=== PATIENT | female | born 1985 | race Caucasian/White ===

== ENCOUNTER 2017-04-08 17:42 | Emergency (ER) | payer OTHER, BC ==
[2017-04-08] MEDS ORDERED: Lidocaine 1% 20 ML MDV INJECT ONE (17:44)
[2017-04-08] MEDS ORDERED: Lidocaine 1% 20 ML MDV ONE (17:45)
--- NOTE | 2017-04-08 17:51 | EDM.PDOC ---
ED HPI GENERAL MEDICAL PROBLEM - General Chief Complaint: Laceration Stated Complaint: UNKNOWN Time Seen by Provider: 04/08/17 17:50 Source of Information: Reports: Patient - History of Present Illness INITIAL COMMENTS - FREE TEXT/NARRATIVE: HISTORY AND PHYSICAL: History of present illness: []Patient was at work today she fell off of a chair landing onto a carpeted floor however she sustained a 4-5 inch horizontal linear laceration evolving the right knee which is gaping to the patella limb is normal as is neurovascularly intact no or obvious foreign body Lesion is bled well no fever nausea vomiting chills sweats no chest pain shortness breath headache dizziness or palpitation no bowel or urine symptoms no head injury or loss of consciousness Review of systems: As per history of present illness and below otherwise all systems reviewed and negative. Past medical history: As per history of present illness and as reviewed below otherwise noncontributory. Surgical history: As per history of present illness and as reviewed below otherwise noncontributory. Social history: No reported history of drug or alcohol abuse. Family history: As per history of present illness and as reviewed below otherwise noncontributory. Physical exam: HEENT: Atraumatic, normocephalic, pupils reactive, negative for conjunctival pallor or scleral icterus, mucous membranes moist, throat clear, neck supple, nontender, trachea midline. Lungs: Clear to auscultation, breath sounds equal bilaterally, chest nontender. Heart: S1S2, regular, negative for clicks, rubs, or JVD. Abdomen: Soft, nondistended, nontender. Negative for masses or hepatosplenomegaly. Negative for costovertebral tenderness. Pelvis: Stable nontender. Genitourinary: Deferred. Rectal: Deferred. Extremities: Atraumatic, negative for cords or calf pain. Neurovascular unremarkable. Neuro: Awake, alert, oriented. Cranial nerves II through XII unremarkable. Cerebellum unremarkable. Motor and sensory unremarkable throughout. Exam nonfocal. Diagnostics: []X-ray 2 views right knee Therapeutics: []Cleansed and explored Lidocaine Jason #17 Standard wound care instructions Bacitracin Telephone Gauze wrap/Jean Pierre wrap dressing Bactrim double strength by mouth twice a day #20 no refill Impression: []5 inch linear laceration right knee Definitive disposition and diagnosis as appropriate pending reevaluation and review of above. right knee Pain Score (Numeric/FACES): 7 - Related Data Allergies Allergy/AdvReac Type Severity Reaction Status Date / Time amoxicillin Allergy Diarrhea Verified 04/08/17 17:49 ED ROS GENERAL - Review of Systems Review Of Systems: ROS reveals no pertinent complaints other than HPI. ED EXAM, SKIN/RASH Exam: See Below Course - Vital Signs Last Recorded V/S: Last Vital Signs Temp 36.8 C 04/08/17 17:49 Pulse 90 04/08/17 17:49 Resp 18 04/08/17 17:49 BP 157/85 H 04/08/17 17:49 Pulse Ox 100 04/08/17 17:49 - Orders/Labs/Meds Orders: Active Orders 24 hr Category Date Time Status Knee 1V or 2V Rt [CR] Stat Exams 04/08/17 17:47 Taken Meds: Medications Discontinued Medications Generic Name Dose Route Start Last Admin Trade Name Freq PRN Reason Stop Dose Admin Lidocaine HCl 20 ml 04/08/17 17:44 04/08/17 18:16 Xylocaine 1% INJECT 04/08/17 17:45 20 ml ONETIME ONE Administration Lidocaine HCl Confirm 04/08/17 17:45 04/08/17 18:16 Xylocaine 1% Administered 04/08/17 17:46 Not Given Dose 20 ml .ROUTE .STK-MED ONE Departure - Departure Time of Disposition: 18:30 Disposition: Home, Self-Care 01 Preliminary Cause of *Q: Sepsis & Multi System Organ Failure Clinical Impression: Laceration - Discharge Information Forms: ED Department Discharge Additional Instructions: Medication as prescribed Return if symptoms persist or worsen Return if fever nausea vomiting chills sweats despite antibiotics redness warmth or pus drainage. Also properly return to ER Follow-up with primary care or occupational health Staple removal in 14 days Keep wound clean and dry for 48 hours Change dressing if it soaks through or becomes soiled as needed and daily [facility] [address] [place] [phone] The following information is given to patients seen in the emergency department who are being discharged to home. This information is to outline your options for follow-up care. We provide all patients seen in our emergency department with a follow-up referral. The need for follow-up, as well as the timing and circumstances, are variable depending upon the specifics of your emergency department visit. If you don't have a primary care physician on staff, we will provide you with a referral. We always advise you to contact your personal physician following an emergency department visit to inform them of the circumstance of the visit and for follow-up with them and/or the need for any referrals to a consulting specialist. The emergency department will also refer you to a specialist when appropriate. This referral assures that you have the opportunity for follow-up care with a specialist. All of these measure are taken in an effort to provide you with optimal care, which includes your follow-up. Under all circumstances we always encourage you to contact your private physician who remains a resource for coordinating your care. When calling for follow-up care, please make the office aware that this follow-up is from your recent emergency room visit. If for any reason you are refused follow-up, please contact the [facility] emergency department at and asked to speak to the emergency department charge nurse. - My Orders Last 24 Hours: My Active Orders 04/08/17 17:47 Knee 1V or 2V Rt [CR] Stat - Assessment/Plan Last 24 Hours: My Active Orders 04/08/17 17:47 Knee 1V or 2V Rt [CR] Stat
[2017-04-08] MEDS ORDERED: Bacitracin Oint 1 GM U/D Packet TOP ONE (18:42)
[2017-04-08 19:15] VITALS: BP 137/89
--- NOTE | 2017-04-09 09:37 | CR ---
EXAM DATE: 04/08/17 PATIENT'S AGE: 32 Patient: FAINA BOND Facility: [place], [place] Site . Site : 1985 Study: XRay Knee [id number] 6:16:43 PM Ordering Physician: Doctor Bueno Final Report: INDICATION: Injury. Status post fall, laceration. TECHNIQUE: Right knee, two views. COMPARISON: None FINDINGS: Bones: Alignment is normal. No acute fractures or aggressive osseous lesions seen. Joint spaces: No significant joint effusion is seen. The joint spaces of the medial, lateral, and patellofemoral compartments are unremarkable. Soft tissues: No radiopaque soft tissue foreign body. Likely soft tissue injury , superficial to midportion of the patella on lateral view. Distal quadriceps tendon and patellar tendon grossly unremarkable. IMPRESSION: 1. Right knee, no acute fracture or joint effusion. Anterior right knee soft tissue defect, superficial to the patella. Dictated by Stevie Mackey MD @ 04/08/2017 6:49:23 PM Dictated by: Stevie Mackey MD @ 04/08/2017 18:49:30 (Electronic Signature) Report Signed by Proxy. [facility]
== END 2017-04-08 19:12 | disposition home or self-care (01) ==
LOC: MW.ED 17:42
DX: S81.011A Laceration without foreign body, right knee, initial encounter (principal); Z88.0 Allergy status to penicillin; W07.XXXA Fall from chair, initial encounter
CPT/HCPCS: 12005; 73560-26-RT; 73560-RT; 99283

== ENCOUNTER 2019-10-17 08:50 | Observation (INO) | payer BC, OTHER ==
--- NOTE | 2019-10-17 09:56 | EDM.PDOC ---
ED HPI GENERAL MEDICAL PROBLEM - General Chief Complaint: Upper Extremity Injury/Pain Stated Complaint: RT SHOULDER INJURY, PROBLEMS WITH LEFT HAND Time Seen by Provider: 10/17/19 08:51 Source of Information: Reports: Patient History Limitations: Reports: No Limitations - History of Present Illness INITIAL COMMENTS - FREE TEXT/NARRATIVE: HISTORY OF PRESENT ILLNESS: Patient is a 34 year old female who states that since 6pm last night she has had "heaviness" and contracture of the ulnar aspect of her right hand , felt heaviness to arm earlier. Is concerned as she is unable to fully extend ulnar aspect of hand. She has numbness to her right face, but describes it as mostly as just lateral to her mouth. Had involvement to v1 and part of v2 area earlier , but no longer. States this has been ongoing intermittently "for a long time" approximately 1-2 times/month. Pt states she slept in an unusual position on the cough which may have caused symptoms. Denies any wrist drop. Denies any recent trauma/falls. No slurred speech or blurred vision. No neck pain but has pain to intrascapular region. She does receive chiropractic work, but has not had any for a few weeks. No arm paresthesias. Has history of sciatica right leg which is unchanged. No cp, dyspnea or abdominal pain. No incontinence or urinary symptoms. Pt has a history of fusion of right shoulder and elbow REVIEW OF SYSTEMS: Other than the symptoms associated with the present events, the following is reported with regard to recent health: General: (-) fever. HENT: (-) congestion. Respiratory: (-) cough. Cardiovascular: (-) chest pain. GI: (-) abdominal pain. : (-) urinary complaints. Musculoskeletal: (-) other aches or pains. Endocrine: (-) generalized weakness. Neurological: (-) localized weakness. Skin: (-) rash PAST MEDICAL HISTORY: reviewed as per nursing notes SOCIAL HISTORY: reviewed as per nursing notes, MEDICATIONS: Per nurse's note ALLERGIES: Per nurse's note, reviewed by me PHYSICAL EXAMINATION: GENERALIZED APPEARANCE: well developed, well nourished in no distress VITAL SIGNS: Per nurse's note, reviewed by me SKIN: Warm, dry; (-) cyanosis; (-) rash. HEAD: (-) scalp swelling, (-) tenderness. EYES: (-) conjunctival pallor, (-) scleral icterus. ENMT: (-) stridor; mucous membranes moist. NECK: (-) tenderness, (-) stiffness, (-) bruit. FROM. no midline tenderness/ step off or deformity BACK: trapezius and infrascapular tenderness. no direct vertebral tenderness. no step off or deformity. right SI tenderness. CHEST AND RESPIRATORY: (-) rales, (-) rhonchi, (-) wheezes; breath sounds equal bilaterally. HEART AND CARDIOVASCULAR: (-) irregularity; (-) murmur, (-) gallop. ABDOMEN AND GI: Soft; (-) tenderness, (-) guarding, (-) rebound, (-) palpable masses, EXTREMITIES: limited ROM right shoulder and elbow (baseline secondary to fusion), TTP left olecranon which pt states is chronic. Contracture of ulnar aspect right hand. unable to actively extend 4th, 5th digits. 2+ radial pulses. cap refill <2 sec. sensation of UE intact and equal bilaterally. decreased sensation to plantar aspect of right foot which pt states has been baseline x years NEURO AND PSYCH: Alert. Cranial nerves grossly intact; strength symmetric. gait steady. EOMI. no gaze impairment. oriented x 3. visual davila intact. sensation intact and equal bilaterally. no dysarthria or aphasia. 5/5+ Strength UE and LE. 3+ DTR. DIAGNOSTICS: CT head/neck CBC, CMP, INR EMERGENCY DEPARTMENT COURSE AND TREATMENT: Patient's condition remained stable during Emergency Department evaluation. Pt remained stable during ED course, she had numbness to light touch just to right of mouth, in non-neurologic distribution. Strength and sensation to UE equal bilaterally although ROM difficult due to prior fusions. Symptoms more than 15 hours old and no indication for code stroke at this time. Symptoms likely due to ulner nerve vs Dupuytren's contracture. However, with facial symptoms, CT ordered and resulted as above. Will require MRI. Case d/w Dr. Villafana who kindl agrees to admit PLAN AND FOLLOW-UP: Admit Right Knee Pain Score (Numeric/FACES): 2 - Related Data Allergies Allergy/AdvReac Type Severity Reaction Status Date / Time amoxicillin Allergy Diarrhea Verified 10/17/19 14:26 Home Meds: Home Meds Acetaminophen [Tylenol Extra Strength] 500 mg PO ASDIRECTED PRN 10/17/19 [ History] Aspirin [Adult Low Dose Aspirin EC] 81 mg PO DAILY 10/17/19 [History] Cetirizine HCl [Allergy Relief] 10 mg PO BEDTIME 10/17/19 [History] Metoprolol Tartrate 25 mg PO BID 10/17/19 [History] NIFEdipine [Nifedipine ER] 60 mg PO BEDTIME 10/17/19 [History] Potassium Chloride 10 meq PO BEDTIME 10/17/19 [History] azaTHIOprine [Azathioprine] 10/17/19 [History] predniSONE [Prednisone] 2.5 mg PO BID 10/17/19 [History] Past Medical History Musculoskeletal History: Reports: Other (See Below) Other Musculoskeletal History: lupus - Infectious Disease History Infectious Disease History: Reports: Chicken Pox, Measles, Mumps - Past Surgical History GI Surgical History: Reports: Other (See Below) Other GI Surgeries/Procedures: kidney biopsy Neurological Surgical History: Reports: Other (See Below) Other Neurological Surgeries/Procedures: Elbow surgery Social & Family History - Family History Family Medical History: Noncontributory - Tobacco Use Smoking Status *Q: Never Smoker - Caffeine Use Caffeine Use: Reports: Coffee - Recreational Drug Use Recreational Drug Use: No Review of Systems - Review of Systems Review Of Systems: See Below (see dictation) ED EXAM, GENERAL - Physical Exam Exam: See Below (see dictation) Course - Vital Signs Last Recorded V/S: Last Vital Signs Temp 97.7 F 10/17/19 12:02 Pulse 81 10/17/19 12:02 Resp 17 10/17/19 09:03 BP 163/106 H 10/17/19 12:02 Pulse Ox 99 10/17/19 12:02 - Orders/Labs/Meds Orders: Active Orders 24 hr Category Date Time Status Admission Status [Patient Status] [ADT] Stat ADT 10/17/19 12:13 Active DME for Discharge [COMM] Stat Oth 10/17/19 12:33 Ordered Saline Lock Insert [OM.PC] Stat Oth 10/17/19 09:39 Ordered Labs: Laboratory Tests 10/17/19 10/17/19 10/17/19 Range/Units 09:50 09:50 09:50 WBC 5.17 (4.0-11.0) K/uL RBC 3.52 L (4.30-5.90) M/uL Hgb 12.3 (12.0-16.0) g/dL Hct 34.8 L (36.0-46.0) % MCV 98.9 H (80.0-98.0) fL MCH 34.9 H (27.0-32.0) pg MCHC 35.3 (31.0-37.0) g/dL RDW Std Deviation 55.8 (28.0-62.0) fl RDW Coeff of Rocky 16 H (11.0-15.0) % Plt Count 77 L (150-400) K/uL MPV 12.10 H (7.40-12.00) fL Neut % (Auto) 87.8 H (48.0-80.0) % Lymph % (Auto) 5.2 L (16.0-40.0) % [place] % (Auto) 5.8 (0.0-15.0) % Eos % (Auto) 1.0 (0.0-7.0) % Baso % (Auto) 0.2 (0.0-1.5) % Neut # (Auto) 4.5 (1.4-5.7) K/uL Lymph # (Auto) 0.3 L (0.6-2.4) K/uL [place] # (Auto) 0.3 (0.0-0.8) K/uL Eos # (Auto) 0.1 (0.0-0.7) K/uL Baso # (Auto) 0.0 (0.0-0.1) K/uL Nucleated RBC % 0.0 /100WBC Nucleated RBCs # 0 K/uL INR 1.04 Sodium 144 (136-145) mmol/L Potassium 3.9 (3.5-5.1) mmol/L Chloride 109 H (98-107) mmol/L Carbon Dioxide 22.9 (21.0-32.0) mmol/L BUN 22 H (7.0-18.0) mg/dL Creatinine 1.5 H (0.6-1.0) mg/dL Est Cr Clr Drug Dosing 37.24 mL/min Estimated GFR (MDRD) 39.3 ml/min Glucose 85 (74-106) mg/dL Calcium 8.3 L (8.5-10.1) mg/dL Meds: Medications Discontinued Medications Generic Name Dose Route Start Last Admin Trade Name Elio PRN Reason Stop Dose Admin Influenza Virus Vaccine 1 each 10/17/19 13:57 10/17/19 14:25 Pharmacy To Dose - Influenza Vaccine IM 10/17/19 13:58 Not Given ONETIME ONE Influenza Virus Vaccine 60 mcg 10/17/19 14:15 Fluzone Quad Syringe IM 10/17/19 14:16 .ONCE ONE Departure - Departure Time of Disposition: 12:43 Disposition: Refer to Observation Clinical Impression: Facial numbness, Contracture of hand, White matter low density on CT of brain - Discharge Information Sepsis Event Note - Evaluation Sepsis Screening Result: No Definite Risk - Focused Exam Vital Signs: Vital Signs Temp Pulse Resp BP Pulse Ox 10/17/19 12:02 97.7 F 81 163/106 H 99 10/17/19 09:03 97.8 F 91 17 146/92 H 94 L Date Exam was Performed: 10/17/19 Time Exam was Performed: 15:40 - My Orders Last 24 Hours: My Active Orders 10/17/19 09:39 Saline Lock Insert [OM.PC] Stat 10/17/19 12:13 Admission Status [Patient Status] [ADT] Stat 10/17/19 12:33 DME for Discharge [COMM] Stat - Assessment/Plan Last 24 Hours: My Active Orders 10/17/19 09:39 Saline Lock Insert [OM.PC] Stat 10/17/19 12:13 Admission Status [Patient Status] [ADT] Stat 10/17/19 12:33 DME for Discharge [COMM] Stat
[2019-10-17 10:14] LABS: CARBON DIOXIDE,CO2 22.9 mmol/L (21.0-32.0); POTASSIUM,K 3.9 mmol/L (3.5-5.1)
--- NOTE | 2019-10-17 11:35 | CT ---
Head CT Technique: Multiple axial sections through the brain were obtained. Intravenous contrast was not utilized. Comparison: No prior intracranial imaging is available. Findings: Low density is noted within the left posterior cerebellar hemisphere and left posterior parietal region. Additional low density is noted within the posterior right parietal region and within the right parietal convexity. Findings mostly appear to be fairly well-defined and most likely old. Ventricles along with basal cisterns and sulci over the convexities are mildly prominent. No other abnormal parenchymal densities are seen. No evidence of intracranial hemorrhage. No midline shift or mass-effect is seen. Bone window settings were reviewed. Visualized mastoid sinuses and paranasal sinuses show nothing acute. No acute calvarial abnormality is appreciated. Impression: 1. Multiple low density areas. Findings raise the possibility of multiple previous infarcts or areas of encephalomalacia from prior trauma. 2. Mild generalized atrophy. 3. Given the patient's age, recommend MRI brain (without and with contrast) to confirm that none of these areas of decreased density represent other etiology. 4. No evidence of intracranial hemorrhage. No mass-effect is seen at this time. Diagnostic code #9 This report was dictated in [place] Standard Time
--- NOTE | 2019-10-17 11:35 | CT ---
CT neck Technique: Multiple axial sections were obtained from above the external auditory canals inferiorly through the lung apices. Intravenous contrast not utilized. Lack of contrast slightly diminishes details of this exam. Findings: Minimal density is noted within the inferior maxillary sinuses which most likely represents a retention cysts. Finding on the right side measures 1.1 cm and finding on the left side measures 6 mm. Other visualized paranasal sinuses are clear. Mastoid sinuses are clear. Parotid salivary glands appear within normal limits. Submandibular salivary glands appear within normal limits. No discrete adenopathy is seen. Parapharyngeal soft tissues are symmetric between right and left sides. No prevertebral soft tissue swelling is seen. Epiglottis appears to be normal. Bone window settings were reviewed which appear within normal limits for the patient's age. Impression: 1. Small findings within both inferior maxillary sinus is most likely representing minimal retention cyst. 2. Nothing acute is appreciated on noncontrast CT study of the neck. Diagnostic code #2 This report was dictated in [place] Standard Time
[2019-10-17] MEDS ORDERED: FLU Vacc QS2019-20(6MOS+)/PF 60 MCG/0.5 ML SYRINGE IM ONE (14:15)
[2019-10-17] MEDS ORDERED: Aspirin 81 MG Tab.Chew PO ONE (17:53)
--- NOTE | 2019-10-17 18:03 | PCM.HP.2 ---
H&P History of Present Illness - General Date of Service: 10/17/19 Admit Problem/Dx: Admission Diagnosis/Problem Admission Diagnosis/Problem Neurological symptoms - History of Present Illness Initial Comments - Free Text/Narative: 34 yo female with pmh of hypertension, lupus with renal, joint and skin involvement who presented with right arm weakness. Patient stated that while watching TV last night she developed sudden right arm weakness. This morning it has improved but she still is not able to full extend the fingers of her hand. In the ED she had a CT scan of the head which reported multiple low density areas. Right Knee Pain Score (Numeric/FACES): 2 - Related Data Allergies/Adverse Reactions: Allergies Allergy/AdvReac Type Severity Reaction Status Date / Time amoxicillin Allergy Diarrhea Verified 10/17/19 14:26 Home Medications: Home Meds Acetaminophen [Tylenol Extra Strength] 500 mg PO ASDIRECTED PRN 10/17/19 [ History] Aspirin [Adult Low Dose Aspirin EC] 81 mg PO DAILY 10/17/19 [History] Cetirizine HCl [Allergy Relief] 10 mg PO BEDTIME 10/17/19 [History] Metoprolol Tartrate 25 mg PO BID 10/17/19 [History] NIFEdipine [Nifedipine ER] 60 mg PO BEDTIME 10/17/19 [History] Potassium Chloride 10 meq PO BEDTIME 10/17/19 [History] azaTHIOprine [Azathioprine] 50 mg PO BID 10/17/19 [History] predniSONE [Prednisone] 2.5 mg PO BID 10/17/19 [History] atorvaSTATin [Lipitor] 40 mg PO BEDTIME #30 tab 10/18/19 [Rx] Past Medical History Cardiovascular History: Reports: Hypertension Other Genitourinary History: pt states microscopic blood clot in the kidneys Musculoskeletal History: Reports: Other (See Below) Other Musculoskeletal History: lupus - Infectious Disease History Infectious Disease History: Reports: Chicken Pox, Measles, Mumps - Past Surgical History GI Surgical History: Reports: Other (See Below) Other GI Surgeries/Procedures: kidney biopsy Neurological Surgical History: Reports: Other (See Below) Other Neurological Surgeries/Procedures: Elbow surgery Social & Family History - Family History Family Medical History: Noncontributory - Tobacco Use Smoking Status *Q: Never Smoker - Caffeine Use Caffeine Use: Reports: Coffee - Recreational Drug Use Recreational Drug Use: No H&P Review of Systems - Review of Systems: Review Of Systems: Comprehensive ROS is negative, except as noted in HPI. Exam - Exam Exam: See Below - Vital Signs Vital Signs: Last Vital Signs Temp 36.3 C 10/17/19 16:00 Pulse 86 10/17/19 16:00 Resp 20 10/17/19 16:00 BP 180/104 H 10/17/19 16:00 Pulse Ox 97 10/17/19 16:00 Weight: 58.3 kg - Exam General: Alert, Oriented HEENT: Conjunctiva Clear Lungs: Clear to Auscultation, Normal Respiratory Effort Cardiovascular: Regular Rate, Regular Rhythm GI/Abdominal Exam: Normal Bowel Sounds, Soft, Non-Tender Extremities: Non-Tender, No Pedal Edema, Other (mild lace red rash on forarms) Neurological: Cranial Nerves Intact, Reflexes Equal Bilateral, Strength Equal Bilateral, Normal Speech, Normal Tone, Sensation Intact (right fingers able to extend about 160 degrees), Other - Patient Data Lab Results Last 24 hrs: Laboratory Results - last 24 hr 10/17/19 10/17/19 10/17/19 Range/Units 09:50 09:50 09:50 WBC 5.17 (4.0-11.0) K/uL RBC 3.52 L (4.30-5.90) M/uL Hgb 12.3 (12.0-16.0) g/dL Hct 34.8 L (36.0-46.0) % MCV 98.9 H (80.0-98.0) fL MCH 34.9 H (27.0-32.0) pg MCHC 35.3 (31.0-37.0) g/dL RDW Std Deviation 55.8 (28.0-62.0) fl RDW Coeff of [place] 16 H (11.0-15.0) % Plt Count 77 L (150-400) K/uL MPV 12.10 H (7.40-12.00) fL Neut % (Auto) 87.8 H (48.0-80.0) % Lymph % (Auto) 5.2 L (16.0-40.0) % [place] % (Auto) 5.8 (0.0-15.0) % Eos % (Auto) 1.0 (0.0-7.0) % Baso % (Auto) 0.2 (0.0-1.5) % Neut # (Auto) 4.5 (1.4-5.7) K/uL Lymph # (Auto) 0.3 L (0.6-2.4) K/uL [place] # (Auto) 0.3 (0.0-0.8) K/uL Eos # (Auto) 0.1 (0.0-0.7) K/uL Baso # (Auto) 0.0 (0.0-0.1) K/uL Nucleated RBC % 0.0 /100WBC Nucleated RBCs # 0 K/uL INR 1.04 Sodium 144 (136-145) mmol/L Potassium 3.9 (3.5-5.1) mmol/L Chloride 109 H (98-107) mmol/L Carbon Dioxide 22.9 (21.0-32.0) mmol/L BUN 22 H (7.0-18.0) mg/dL Creatinine 1.5 H (0.6-1.0) mg/dL Est Cr Clr Drug Dosing 37.24 mL/min Estimated GFR (MDRD) 39.3 ml/min Glucose 85 (74-106) mg/dL Calcium 8.3 L (8.5-10.1) mg/dL Result Diagrams: 10/18/19 05:38 10/18/19 05:38 Sepsis Event Note - Evaluation Sepsis Screening Result: No Definite Risk - Focused Exam Vital Signs: Vital Signs Temp Pulse Resp BP Pulse Ox 10/17/19 16:00 36.3 C 86 20 180/104 H 97 10/17/19 12:02 36.5 C 81 163/106 H 99 10/17/19 09:03 36.6 C 91 17 146/92 H 94 L Date Exam was Performed: 10/20/19 Time Exam was Performed: 15:31 Problem List Initiated/Reviewed/Updated: Yes Orders Last 24hrs: Active Orders 24 hr Category Date Time Status Admission Status [Patient Status] [ADT] Stat ADT 10/17/19 12:13 Active Influenza Vaccine Charge [RC] .DISCHARGE Care 10/17/19 13:57 Active Nursing Bedside Swallow Screen [RC] ASDIRECTED Care 10/17/19 17:00 Active Regular Diet [DIET] Diet 10/17/19 Breakfast Active Ang Head wo Cont [MR] Routine Exams 10/17/19 17:52 Ordered Ang Neck wo Cont [MR] Routine Exams 10/17/19 17:52 Ordered Brain w wo Cont [MR] Routine Exams 10/17/19 17:52 Ordered Echo 2D wo Cont [US] Routine Exams 10/17/19 17:56 Ordered azaTHIOprine [Imuran] Med 10/17/19 18:00 Unverified DOSE UNIT RTE FREQ predniSONE [Prednisone] Med 10/17/19 21:00 Ordered 2.5 mg PO BID DME for Discharge [COMM] Stat Oth 10/17/19 12:33 Ordered Saline Lock Insert [OM.PC] Stat Oth 10/17/19 09:39 Ordered Medication Orders Non-Formulary Medication (Prednisone [Prednisone]) 2.5 mg PO BID JJ Assessment/Plan Comment:: 34 yo female admitted for stroke like symptoms with arm and hand weakness. We will continue work up with MRI/MRA of head neck. We will allow for permissive hypertension today due to concerns of CVA.
[2019-10-17] MEDS: predniSONE 5 MG Tab PO SCH (20:05)
[2019-10-18 06:33] LABS: POTASSIUM,K 4.3 mmol/L (3.5-5.1)
[2019-10-18] MEDS ORDERED: Gadobenate Dimeglumine 529 MG/ML 20 ML SDV IVPUSH STA (07:27)
[2019-10-18] MEDS ORDERED: LORazepam 2 MG/ML SDV IVPUSH ONE (07:42)
[2019-10-18 08:40] LABS: HEMOGLOBIN A1C 4.4 % (4.5-6.2)
[2019-10-18] MEDS: predniSONE 5 MG Tab PO SCH (09:27)
--- NOTE | 2019-10-18 10:28 | MR ---
MRI angiogram of brain Technique: [id number] MR angiogram study was obtained centered to the [place]. Multiple MIP images were obtained in multiple projections. Comparison: No prior intracranial angiogram study is available. Findings: Left vertebral artery is smaller than the right vertebral artery compatible with dominant right vertebral artery. Distal internal carotid arteries appear patent within the carotid siphon. There is normal flow into the posterior cerebral arteries, middle cerebral arteries and anterior cerebral arteries. Posterior cerebral artery is mostly supplied by the anterior circulation with a intact posterior communicating artery. The MIP images shows small size of the right A1 segment which is believed to be artifact as this is not correlated on the source images. No discrete aneurysm is appreciated. No focal occlusion or stenosis is seen. Impression: 1. Dominant right vertebral artery. 2. Left posterior cerebral artery mostly supplied by patent left posterior communicating artery from the anterior circulation. 3. Narrowing on the MIPS images within the right A1 segment believed to be artifact as this is not correlated on the source images. 4. No additional abnormality is appreciated. Diagnostic code #2 This report was dictated in [place] Standard Time
--- NOTE | 2019-10-18 10:28 | MR ---
MR angiogram of neck Noncontrast MR study of the neck was obtained. Study is suboptimal without IV contrast. Findings: There is irregularity within the distal right internal carotid artery. This is an area that usually is caused by artifact. Right vertebral artery is not seen most likely related to flow related process. No additional abnormality is appreciated on this limited study. Impression: 1. Suboptimal study without IV contrast. Findings which are believed to be incidental as noted above. 2. For more complete imaging of the neck vessels, contrast enhanced MR angiogram should be considered. Diagnostic code #3 This report was dictated in [place] Standard Time
--- NOTE | 2019-10-18 10:28 | MR ---
MRI brain (without and with contrast) Technique: T1 coronal and sagittal; T1, T2, FLAIR and diffusion axial; post contrast T1 fat-suppressed axial, coronal and sagittal images were obtained of the brain. Comparison: Previous head CT exam of 10/17/19. Findings: Ventricles along with basal cisterns and sulci over the convexities are mildly prominent. Multiple areas of increased signal seen on the FLAIR sequence within the cortical and subcortical regions on both sides of the supratentorial brain. Mild areas of increased signal are seen within the periventricular white matter. Increased signal as well as an area of focal atrophy is seen within the left cerebellar hemisphere. More confluent areas of increased signal are seen within the posterior parietal regions on both sides. Small diffusion abnormality is seen within the left parietal convexity. No other acute diffusion abnormalities are seen. No abnormal enhancement is identified within the brain parenchyma. No midline shift or mass effect is appreciated. Impression: 1. Areas of increased signal on the FLAIR sequence within the left cerebellar hemisphere as well as within both sides of the supratentorial brain. 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 2. One small area of increased signal shows diffusion abnormality within the left posterior parietal convexity compatible with relatively acute change most likely from lupus encephalopathy. 3. Mild generalized atrophy with no areas of abnormal enhancement being seen. Diagnostic code #3 This report was dictated in [place] Standard Time
[2019-10-18] MEDS ORDERED: Aspirin 81 MG Tab.EC PO SCH (11:59)
[2019-10-18 12:02] VITALS: BP 166/99; PULSE 99
--- NOTE | 2019-10-18 13:53 | PCM.DCSUM1 ---
Discharge Summary - Hospital Course Brief History: 34 yo female with pmh of hypertension, lupus with renal, joint and skin involvement who presented with right arm weakness. Patient stated that while watching TV last night she developed sudden right arm weakness. This morning it has improved but she still is not able to full extend the fingers of her hand. In the ED she had a CT scan of the head which reported multiple low density areas. - Discharge Data Discharge Date: 10/18/19 Discharge Disposition: Home, Self-Care 01 Condition: Good - Referral to Home Health Primary Care Physician: Keyshawn Jiang MD - Patient Summary/Data Consults: Consultations 10/18/19 10:59 Consult to Occupational Therapy [OT Evaluation and Treatment] [CONS] Routine - Discharge Plan *PRESCRIPTION DRUG MONITORING PROGRAM REVIEWED*: Not Applicable *COPY OF PRESCRIPTION DRUG MONITORING REPORT IN PATIENT [place]: Not Applicable Prescriptions/Med Rec: atorvaSTATin [Lipitor] 40 mg PO BEDTIME #30 tab Home Medications: Home Meds Acetaminophen [Tylenol Extra Strength] 500 mg PO ASDIRECTED PRN 10/17/19 [ History] Aspirin [Adult Low Dose Aspirin EC] 81 mg PO DAILY 10/17/19 [History] Cetirizine HCl [Allergy Relief] 10 mg PO BEDTIME 10/17/19 [History] Metoprolol Tartrate 25 mg PO BID 10/17/19 [History] NIFEdipine [Nifedipine ER] 60 mg PO BEDTIME 10/17/19 [History] Potassium Chloride 10 meq PO BEDTIME 10/17/19 [History] azaTHIOprine [Azathioprine] 50 mg PO BID 10/17/19 [History] predniSONE [Prednisone] 2.5 mg PO BID 10/17/19 [History] atorvaSTATin [Lipitor] 40 mg PO BEDTIME #30 tab 10/18/19 [Rx] Oxygen Therapy Mode: Room Air Patient Handouts: Systemic Lupus Erythematosus, Adult, Atorvastatin tablets, Ischemic Stroke Referrals: Keyshawn Jiang MD [Primary Care Provider] - 11/02/19 3:00 pm Breann Oscar MD [Physician] - 10/22/19 2:00 pm Marck Taylor MD [Ordering Only Provider] - 11/11/19 2:00 pm - Discharge Summary/Plan Comment DC Time >30 min.: No Discharge Summary/Plan Comment: Admitting Diagnoses: R arm/hand weakness Discharge Diagnoses: Acute and subacute CVA R arm/hand weakness Other PMH: SLE with joint, renal and skin involvement Thrombocytopenia Osteopenia Hx + antiphospholipid antibody Raynauds phenomenon HTN Sherrell was admitted secondary to sudden onset R arm/hand weakness, head CT in ED revealed multiple low density lesions. She was admitted and permissive HTN allowed, while awaiting MRI/MRA head and neck. 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 I spoke with Dr Oscar, who directly viewed images and felt she likely has have acute and subacute CVAs. She agrees with needing to place patient on anticoagulation, but thrombocytopenia is a limiting factor. She will follow up with patient as outpatient this week. Lipid panel obtained LDL 115, will start on Atorvastatin 40 mg daily. She was counseled on monitoring for muscle weakness. We will also for now continue ASA daily for CVA. Dr Oscar recommended follow up with Hematology regarding thrombocytopenia and the need for starting anticoagulation. I did also speak with Dr Jiang regarding admission and findings. He agrees with anticoagulation, but does feel thrombocytopenia is limiting. I spoke with Sherrell and her , they are wanting to speak with all the specialists prior to making an informed decision. They previously were given this decision and opted for ASA, but at that time she had not had any CVAs. We will arrange follow up appointments with Dr Oscar, neurology, Dr Jiang, Corporate Accounting Manager and PCP as well as Hematology. She will have follow up with outpatient OT to help with R arm weakness after evaluation in the hospital. She will be continued on all home medications, will add Atorvastatin. - General Info Date of Service: 10/18/19 Admission Dx/Problem (Free Text: Admission Diagnosis/Problem Admission Diagnosis/Problem Neurological symptoms Subjective Update: Doing well this morning, R arm weakness continues. able to open hand somewhat. Assistance Specialist strength decreased. No chest pain or SOB. - Patient Data Vitals - Most Recent: Last Vital Signs Temp 98.0 F 10/18/19 12:01 Pulse 99 10/18/19 12:01 Resp 16 10/18/19 12:01 BP 166/99 H 10/18/19 12:01 Pulse Ox 97 10/18/19 12:01 Weight - Most Recent: 58.3 kg I&O - Last 24 hours: Intake & Output 10/17/19 10/18/19 10/18/19 22:59 06:59 14:59 Intake Total 600 Output Total 400 Balance 200 Lab Results - Last 24 hrs: Laboratory Results - last 24 hr 10/18/19 10/18/19 10/18/19 Range/Units 05:38 05:38 05:38 WBC 3.61 L (4.0-11.0) K/uL RBC 3.27 L (4.30-5.90) M/uL Hgb 11.2 L (12.0-16.0) g/dL Hct 32.5 L (36.0-46.0) % MCV 99.4 H (80.0-98.0) fL MCH 34.3 H (27.0-32.0) pg MCHC 34.5 (31.0-37.0) g/dL RDW Std Deviation 55.8 (28.0-62.0) fl RDW Coeff of [place] 15 (11.0-15.0) % Plt Count 73 L (150-400) K/uL MPV 12.90 H (7.40-12.00) fL Neut % (Auto) 87.5 H (48.0-80.0) % Lymph % (Auto) 7.2 L (16.0-40.0) % [place] % (Auto) 3.6 (0.0-15.0) % Eos % (Auto) 1.4 (0.0-7.0) % Baso % (Auto) 0.3 (0.0-1.5) % Neut # (Auto) 3.2 (1.4-5.7) K/uL Lymph # (Auto) 0.3 L (0.6-2.4) K/uL [place] # (Auto) 0.1 (0.0-0.8) K/uL Eos # (Auto) 0.1 (0.0-0.7) K/uL Baso # (Auto) 0.0 (0.0-0.1) K/uL Nucleated RBC % 0.0 /100WBC Nucleated RBCs # 0 K/uL Sodium 144 (136-145) mmol/L Potassium 4.3 (3.5-5.1) mmol/L Chloride 109 H (98-107) mmol/L Carbon Dioxide 25.0 (21.0-32.0) mmol/L BUN 26 H (7.0-18.0) mg/dL Creatinine 1.5 H (0.6-1.0) mg/dL Est Cr Clr Drug Dosing 37.24 mL/min Estimated GFR (MDRD) 39.3 ml/min Glucose 87 (74-106) mg/dL Hemoglobin A1c (4.5-6.2) % Calcium 8.4 L (8.5-10.1) mg/dL Triglycerides 121 (0-200) mg/dL Cholesterol 193 (50-200) mg/dL LDL Cholesterol, Calc 115 (60-180) mg/dL VLDL Cholesterol 24 (5-55) mg/dL HDL Cholesterol 54 (40-60) mg/dL Cholesterol/HDL Ratio 3.6 (3.3-6.0) 10/18/19 Range/Units 05:38 WBC (4.0-11.0) K/uL RBC (4.30-5.90) M/uL Hgb (12.0-16.0) g/dL Hct (36.0-46.0) % MCV (80.0-98.0) fL MCH (27.0-32.0) pg MCHC (31.0-37.0) g/dL RDW Std Deviation (28.0-62.0) fl RDW Coeff of [place] (11.0-15.0) % Plt Count (150-400) K/uL MPV (7.40-12.00) fL Neut % (Auto) (48.0-80.0) % Lymph % (Auto) (16.0-40.0) % [place] % (Auto) (0.0-15.0) % Eos % (Auto) (0.0-7.0) % Baso % (Auto) (0.0-1.5) % Neut # (Auto) (1.4-5.7) K/uL Lymph # (Auto) (0.6-2.4) K/uL [place] # (Auto) (0.0-0.8) K/uL Eos # (Auto) (0.0-0.7) K/uL Baso # (Auto) (0.0-0.1) K/uL Nucleated RBC % /100WBC Nucleated RBCs # K/uL Sodium (136-145) mmol/L Potassium (3.5-5.1) mmol/L Chloride (98-107) mmol/L Carbon Dioxide (21.0-32.0) mmol/L BUN (7.0-18.0) mg/dL Creatinine (0.6-1.0) mg/dL Est Cr Clr Drug Dosing mL/min Estimated GFR (MDRD) ml/min Glucose (74-106) mg/dL Hemoglobin A1c 4.4 L (4.5-6.2) % Calcium (8.5-10.1) mg/dL Triglycerides (0-200) mg/dL Cholesterol (50-200) mg/dL LDL Cholesterol, Calc (60-180) mg/dL VLDL Cholesterol (5-55) mg/dL HDL Cholesterol (40-60) mg/dL Cholesterol/HDL Ratio (3.3-6.0) Med Orders - Current: Current Medications Aspirin (Halfprin) 81 mg PO DAILY [facility] Last Admin: 10/18/19 13:03 Dose: 81 mg Azathioprine 50 Mg (Tab) 0 each PO DAILY [facility] Last Admin: 10/18/19 13:03 Dose: 2 each Prednisone (Prednisone) 2.5 mg PO BID [facility] Last Admin: 10/18/19 09:27 Dose: 2.5 mg Discontinued Medications Aspirin (Aspirin) 324 mg PO ONETIME ONE Stop: 10/17/19 17:54 Last Admin: 10/17/19 19:32 Dose: Not Given Azathioprine (Imuran) 50 mg PO BID [facility] Gadobenate Dimeglumine (Multihance) 20 ml IVPUSH ONETIME STA Stop: 10/18/19 07:28 Last Admin: 10/18/19 08:04 Dose: 8 ml Influenza Virus Vaccine (Pharmacy To Dose - Influenza Vaccine) 1 each IM ONETIME ONE Stop: 10/17/19 13:58 Last Admin: 10/17/19 14:25 Dose: Not Given Influenza Virus Vaccine (Fluzone Quad [id number] Syringe) 60 mcg IM .ONCE ONE Stop: 10/17/19 14:16 Lorazepam (Ativan) 1 mg IVPUSH ONETIME ONE Stop: 10/18/19 07:43 Last Admin: 10/18/19 09:19 Dose: 1 mg - Exam General: Reports: Alert, Oriented Lungs: Reports: Clear to Auscultation, Normal Respiratory Effort Cardiovascular: Reports: Regular Rate, Regular Rhythm GI/Abdominal Exam: Normal Bowel Sounds, Soft, Non-Tender Extremities: Normal Inspection, Normal Range of Motion Neurological: Denies: Strength Equal Bilateral (R hand +3/5) Psy/Mental Status: Reports: Alert, Normal Affect, Normal Mood
--- NOTE | 2019-10-21 15:18 | ECHO ---
EXAM DATE: 10/17/19 PATIENT'S AGE: 34 The echocardiogram report can be seen in this patient's EMR (Electronic Medical Record) in the REPORTS section. The report has also been scanned into PACs. BRYAN
== END 2019-10-18 16:30 | disposition home or self-care (01) ==
LOC: MW.ED 08:50 → MW.MS 12:43
PROVIDERS: ADMIT Internal Medicine; ATTEND Internal Medicine
DX: I63.9 Cerebral infarction, unspecified (principal); R53.1 Weakness; I10 Essential (primary) hypertension; M32.14 Glomerular disease in systemic lupus erythematosus; D47.3 Essential (hemorrhagic) thrombocythemia; M85.80 Other specified disorders of bone density and structure, unspecified site; I73.00 Raynaud's syndrome without gangrene; Z79.82 Long term (current) use of aspirin; Z79.899 Other long term (current) drug therapy; Z88.0 Allergy status to penicillin; Z86.2 Personal history of diseases of the blood and blood-forming organs and certain disorders involving the immune mechanism; Z23 Encounter for immunization; R29.898 Other symptoms and signs involving the musculoskeletal system
CPT/HCPCS: 36415; 70450; 70490; 70544; 70547; 70553; 80048; 80061; 83036; 85025; 85302; 85303; 85306; 85610; 85611; 85613; 85670; 85732; 86146; 86147; 90471; 90686; 93306; 96374; 97165; 99284; A9270; A9577; G0378; J2060; G0008; J7512

== ENCOUNTER 2020-10-17 21:33 | Emergency (ER) | payer OTHER ==
[2020-10-17] MEDS ORDERED: Aspirin 81 MG Tab.Chew PO ONE (21:47)
--- NOTE | 2020-10-17 21:51 | EDM.PDOC ---
ED HPI GENERAL MEDICAL PROBLEM - General Chief Complaint: Chest Pain Stated Complaint: CHEST PAIN Time Seen by Provider: 10/17/20 21:36 Source of Information: Reports: Patient History Limitations: Reports: No Limitations - History of Present Illness INITIAL COMMENTS - FREE TEXT/NARRATIVE: Is a 35-year-old female on warfarin with a history of lupus who presents today for right-sided chest pain. Patient states that about a hour ago she developed this right-sided pain that has not been made better or worse with any event. Patient took some Tylenol without much relief. Patient denies any cough fever chills or injury to the chest. Patient denies any leg swelling. Patient has never had this pain before in her chest in the past. chest area Pain Score (Numeric/FACES): 5 - Related Data Allergies Allergy/AdvReac Type Severity Reaction Status Date / Time amoxicillin Allergy Diarrhea Verified 10/17/20 21:47 Home Meds: Home Meds Metoprolol Tartrate 25 mg PO BID 10/17/19 [History] NIFEdipine [Nifedipine ER] 60 mg PO BEDTIME 10/17/19 [History] azaTHIOprine [Azathioprine] 50 mg PO BID 10/17/19 [History] predniSONE [Prednisone] 2.5 mg PO BID 10/17/19 [History] atorvaSTATin [Lipitor] 40 mg PO BEDTIME #30 tab 10/18/19 [Rx] Cholecalciferol (Vitamin D3) [Vitamin D3] 5,000 unit PO DAILY 10/17/20 [History] Warfarin [Coumadin] 5 mg PO ASDIRECTED 10/17/20 [History] Past Medical History Cardiovascular History: Reports: Hypertension Other Genitourinary History: pt states microscopic blood clot in the kidneys Musculoskeletal History: Reports: Other (See Below) Other Musculoskeletal History: lupus - Infectious Disease History Infectious Disease History: Reports: Chicken Pox, Measles, Mumps - Past Surgical History GI Surgical History: Reports: Other (See Below) Other GI Surgeries/Procedures: kidney biopsy Neurological Surgical History: Reports: Other (See Below) Other Neurological Surgeries/Procedures: Elbow surgery Social & Family History - Family History Family Medical History: No Pertinent Family History - Caffeine Use Caffeine Use: Reports: Coffee ED ROS GENERAL - Review of Systems Review Of Systems: See Below Constitutional: Reports: No Symptoms HEENT: Reports: No Symptoms Respiratory: Reports: No Symptoms Cardiovascular: Reports: Chest Pain Endocrine: Reports: No Symptoms GI/Abdominal: Reports: No Symptoms : Reports: No Symptoms Musculoskeletal: Reports: No Symptoms Skin: Reports: No Symptoms Neurological: Reports: No Symptoms Psychiatric: Reports: No Symptoms Hematologic/Lymphatic: Reports: No Symptoms Immunologic: Reports: No Symptoms ED EXAM, GENERAL - Physical Exam Exam: See Below Exam Limited By: No Limitations General Appearance: Alert, WD/WN, No Apparent Distress Respiratory/Chest: No Respiratory Distress, Lungs Clear, Normal Breath Sounds Cardiovascular: Normal Peripheral Pulses, Regular Rate, Rhythm GI/Abdominal: Normal Bowel Sounds, Soft, Non-Tender Extremities: Normal Inspection Neurological: Alert, Oriented, Normal Cognition, Normal Gait #1 Interpretation EKG Date: 10/17/20 Time: 21:35 Rhythm: NSR Rate (Beats/Min): 93 [place]: Normal ST-T: Normal Course - Vital Signs Last Recorded V/S: Last Vital Signs Temp 99 F 10/17/20 21:35 Pulse 71 10/17/20 22:45 Resp 18 10/17/20 22:45 BP 157/90 H 10/17/20 23:10 Pulse Ox 99 10/17/20 22:45 - Orders/Labs/Meds Orders: Active Orders 24 hr Category Date Time Status CULTURE URINE [RM] Stat Lab 10/17/20 22:35 Received Labs: Laboratory Tests 10/17/20 10/17/20 10/17/20 Range/Units 21:40 21:40 21:40 WBC 0.38 L (4.0-11.0) K/uL RBC 3.08 L (4.30-5.90) M/uL Hgb 11.1 L (12.0-16.0) g/dL Hct 31.7 L (36.0-46.0) % MCV 102.9 H (80.0-98.0) fL MCH 36.0 H (27.0-32.0) pg MCHC 35.0 (31.0-37.0) g/dL RDW Std Deviation 59.4 (28.0-62.0) fl RDW Coeff of Rocky 16 H (11.0-15.0) % Plt Count 95 L (150-400) K/uL MPV 10.90 (7.40-12.00) fL Neut % (Auto) 39.4 L (48.0-80.0) % Lymph % (Auto) 39.5 (16.0-40.0) % [place] % (Auto) 7.9 (0.0-15.0) % Eos % (Auto) 7.9 H (0.0-7.0) % Baso % (Auto) 5.3 H (0.0-1.5) % Neut # (Auto) 0.2 L (1.4-5.7) K/uL Lymph # (Auto) 0.2 L (0.6-2.4) K/uL [place] # (Auto) 0.0 (0.0-0.8) K/uL Eos # (Auto) 0.0 (0.0-0.7) K/uL Baso # (Auto) 0.0 (0.0-0.1) K/uL Add Manual Diff NO Nucleated RBC % 4.4 /100WBC Nucleated RBCs # 0 K/uL INR 3.77 APTT 56.8 H (18.6-31.3) SEC Sodium 141 (136-145) mmol/L Potassium 3.6 (3.5-5.1) mmol/L Chloride 106 (98-107) mmol/L Carbon Dioxide 24.5 (21.0-32.0) mmol/L BUN 26 H (7.0-18.0) mg/dL Creatinine 1.3 H (0.6-1.0) mg/dL Est Cr Clr Drug Dosing TNP Estimated GFR (MDRD) 46.1 ml/min Glucose 111 H (74-106) mg/dL Calcium 8.5 (8.5-10.1) mg/dL Total Bilirubin 1.7 H (0.2-1.0) mg/dL AST 54 H (15-37) IU/L ALT 56 (14-63) IU/L Alkaline Phosphatase 78 (46-116) U/L Creatine Kinase 62 (26-308) U/L Troponin I < 0.050 (0.000-0.056) ng/mL Total Protein 6.9 (6.4-8.2) g/dL Albumin 3.7 (3.4-5.0) g/dL Globulin 3.2 (2.6-4.0) g/dL Albumin/Globulin Ratio 1.2 (0.9-1.6) Urine Color Urine Appearance Urine pH (5.0-8.0) Ur Specific Biddle (1.001-1.035) Urine Protein (NEGATIVE) mg/dL Urine Glucose (UA) (NEGATIVE) mg/dL Urine Ketones (NEGATIVE) mg/dL Urine Occult Blood (NEGATIVE) Urine Nitrite (NEGATIVE) Urine Bilirubin (NEGATIVE) Urine Urobilinogen (<2.0) EU/dL Ur Leukocyte Esterase (NEGATIVE) Urine RBC (0-2/HPF) Urine WBC (0-5/HPF) Ur Epithelial Cells (NONE-FEW) Urine Bacteria (NEGATIVE) Urine Mucus (NONE-MOD) Urine HCG, Qual (NEGATIVE) 10/17/20 10/17/20 10/18/20 Range/Units 22:35 22:35 00:43 WBC (4.0-11.0) K/uL RBC (4.30-5.90) M/uL Hgb (12.0-16.0) g/dL Hct (36.0-46.0) % MCV (80.0-98.0) fL MCH (27.0-32.0) pg MCHC (31.0-37.0) g/dL RDW Std Deviation (28.0-62.0) fl RDW Coeff of Rocky (11.0-15.0) % Plt Count (150-400) K/uL MPV (7.40-12.00) fL Neut % (Auto) (48.0-80.0) % Lymph % (Auto) (16.0-40.0) % [place] % (Auto) (0.0-15.0) % Eos % (Auto) (0.0-7.0) % Baso % (Auto) (0.0-1.5) % Neut # (Auto) (1.4-5.7) K/uL Lymph # (Auto) (0.6-2.4) K/uL [place] # (Auto) (0.0-0.8) K/uL Eos # (Auto) (0.0-0.7) K/uL Baso # (Auto) (0.0-0.1) K/uL Add Manual Diff Nucleated RBC % /100WBC Nucleated RBCs # K/uL INR APTT (18.6-31.3) SEC Sodium (136-145) mmol/L Potassium (3.5-5.1) mmol/L Chloride (98-107) mmol/L Carbon Dioxide (21.0-32.0) mmol/L BUN (7.0-18.0) mg/dL Creatinine (0.6-1.0) mg/dL Est Cr Clr Drug Dosing Estimated GFR (MDRD) ml/min Glucose (74-106) mg/dL Calcium (8.5-10.1) mg/dL Total Bilirubin (0.2-1.0) mg/dL AST (15-37) IU/L ALT (14-63) IU/L Alkaline Phosphatase (46-116) U/L Creatine Kinase 43 (26-308) U/L Troponin I (0.000-0.056) ng/mL Total Protein (6.4-8.2) g/dL Albumin (3.4-5.0) g/dL Globulin (2.6-4.0) g/dL Albumin/Globulin Ratio (0.9-1.6) Urine Color YELLOW Urine Appearance CLEAR Urine pH 5.5 (5.0-8.0) Ur Specific Biddle 1.020 (1.001-1.035) Urine Protein 30 H (NEGATIVE) mg/dL Urine Glucose (UA) NEGATIVE (NEGATIVE) mg/dL Urine Ketones NEGATIVE (NEGATIVE) mg/dL Urine Occult Blood SMALL H (NEGATIVE) Urine Nitrite NEGATIVE (NEGATIVE) Urine Bilirubin NEGATIVE (NEGATIVE) Urine Urobilinogen 0.2 (<2.0) EU/dL Ur Leukocyte Esterase TRACE H (NEGATIVE) Urine RBC NONE SEEN (0-2/HPF) Urine WBC 0-1 (0-5/HPF) Ur Epithelial Cells FEW (NONE-FEW) Urine Bacteria FEW (NEGATIVE) Urine Mucus LIGHT (NONE-MOD) Urine HCG, Qual NEGATIVE (NEGATIVE) 10/18/20 Range/Units 00:43 WBC (4.0-11.0) K/uL RBC (4.30-5.90) M/uL Hgb (12.0-16.0) g/dL Hct (36.0-46.0) % MCV (80.0-98.0) fL MCH (27.0-32.0) pg MCHC (31.0-37.0) g/dL RDW Std Deviation (28.0-62.0) fl RDW Coeff of Rocky (11.0-15.0) % Plt Count (150-400) K/uL MPV (7.40-12.00) fL Neut % (Auto) (48.0-80.0) % Lymph % (Auto) (16.0-40.0) % [place] % (Auto) (0.0-15.0) % Eos % (Auto) (0.0-7.0) % Baso % (Auto) (0.0-1.5) % Neut # (Auto) (1.4-5.7) K/uL Lymph # (Auto) (0.6-2.4) K/uL [place] # (Auto) (0.0-0.8) K/uL Eos # (Auto) (0.0-0.7) K/uL Baso # (Auto) (0.0-0.1) K/uL Add Manual Diff Nucleated RBC % /100WBC Nucleated RBCs # K/uL INR APTT (18.6-31.3) SEC Sodium (136-145) mmol/L Potassium (3.5-5.1) mmol/L Chloride (98-107) mmol/L Carbon Dioxide (21.0-32.0) mmol/L BUN (7.0-18.0) mg/dL Creatinine (0.6-1.0) mg/dL Est Cr Clr Drug Dosing Estimated GFR (MDRD) ml/min Glucose (74-106) mg/dL Calcium (8.5-10.1) mg/dL Total Bilirubin (0.2-1.0) mg/dL AST (15-37) IU/L ALT (14-63) IU/L Alkaline Phosphatase (46-116) U/L Creatine Kinase (26-308) U/L Troponin I < 0.050 (0.000-0.056) ng/mL Total Protein (6.4-8.2) g/dL Albumin (3.4-5.0) g/dL Globulin (2.6-4.0) g/dL Albumin/Globulin Ratio (0.9-1.6) Urine Color Urine Appearance Urine pH (5.0-8.0) Ur Specific Biddle (1.001-1.035) Urine Protein (NEGATIVE) mg/dL Urine Glucose (UA) (NEGATIVE) mg/dL Urine Ketones (NEGATIVE) mg/dL Urine Occult Blood (NEGATIVE) Urine Nitrite (NEGATIVE) Urine Bilirubin (NEGATIVE) Urine Urobilinogen (<2.0) EU/dL Ur Leukocyte Esterase (NEGATIVE) Urine RBC (0-2/HPF) Urine WBC (0-5/HPF) Ur Epithelial Cells (NONE-FEW) Urine Bacteria (NEGATIVE) Urine Mucus (NONE-MOD) Urine HCG, Qual (NEGATIVE) Meds: Medications Discontinued Medications Generic Name Dose Route Start Last Admin Trade Name Elio PRN Reason Stop Dose Admin Aspirin 324 mg 10/17/20 21:47 10/17/20 21:54 Aspirin PO 10/17/20 21:48 324 mg ONETIME ONE Administration Iopamidol 50 ml 10/18/20 00:02 10/18/20 00:04 Isovue Multipack-370 (76%) IVPUSH 10/18/20 00:03 50 ml ONETIME STA Administration Morphine Sulfate 4 mg 10/17/20 22:06 10/17/20 22:14 Morphine IVPUSH 10/17/20 22:07 4 mg ONETIME ONE Administration - Re-Assessments/Exams Free Text/Narrative Re-Assessment/Exam: 10/18/20 01:[address] PE shows some subcutaneous fat stranding to trauma infection or inflammation. Patient has no trauma has no point tenderness there does not show any signs of abscess. Patient tropes and EKG were both reviewed. Patient made aware of her low WBC count. Patient has some neutropenia as well. Patient has no fever or no signs of infection. Patient has lupus and also had a recent rituximab injection which could possibly the cause of her leukopenia. Currently chest pain-free and asymptomatic no signs of infection no shortness of breath fever and UA also reviewed. Will be discharged and will follow up with her yarn examiner tomorrow and we given strict return precautions she develops any fever or signs of infection. Departure - Departure Time of Disposition: 01:20 Disposition: Home, Self-Care 01 Condition: Good Clinical Impression: Leukopenia Instructions: Nonspecific Chest Pain, Adult, [id number] Referrals: Monet Baca DO [Primary Care Provider] - Forms: ED Department Discharge Additional Instructions: The following information is given to patients seen in the emergency department who are being discharged to home. This information is to outline your options for follow-up care. We provide all patients seen in our emergency department with a follow-up referral. The need for follow-up, as well as the timing and circumstances, are variable depending upon the specifics of your emergency department visit. If you don't have a primary care physician on staff, we will provide you with a referral. We always advise you to contact your personal physician following an emergency department visit to inform them of the circumstance of the visit and for follow-up with them and/or the need for any referrals to a consulting specialist. The emergency department will also refer you to a specialist when appropriate. This referral assures that you have the opportunity for follow-up care with a specialist. All of these measure are taken in an effort to provide you with optimal care, which includes your follow-up. Under all circumstances we always encourage you to contact your private physician who remains a resource for coordinating your care. When calling for follow-up care, please make the office aware that this follow-up is from your recent emergency room visit. If for any reason you are refused follow-up, please contact the [facility] Emergency Department at and asked to speak to the emergency department charge nurse. Please follow up with your primary care physician. If you do not have a primary care physician, see below: [facility] [address] [place] [id number] My [facility] [address] [place] [id number] Please follow-up with your yarn examiner tomorrow morning. Let them know that you are white blood cell count is low but she did not have any fevers or signs of infection. We also did a CT of your chest that show some stranding of fat in the rutledge that may be due to trauma or less likely infection again you have no signs of infection. If you develop any fevers chills or cough or increased urination please return to the ED you may need to be admitted for IV antibiotics. Sepsis Event Note (ED) - Focused Exam Vital Signs: Vital Signs Temp Pulse Resp BP Pulse Ox 10/17/20 23:10 157/90 H 10/17/20 22:45 71 18 157/102 H 99 10/17/20 21:56 168/103 H 10/17/20 21:35 99 F 95 18 182/102 H 97 - My Orders Last 24 Hours: My Active Orders 10/17/20 22:35 CULTURE URINE [RM] Stat - Assessment/Plan Last 24 Hours: My Active Orders 10/17/20 22:35 CULTURE URINE [RM] Stat Assessment:: Patient is a 35-year-old female with a history of lupus who presents today for right-sided chest pain that started hour ago. Patient EKG shows no ischemic changes. She has a heart score of 1 just due to the risk factors. Will obtain troponins EKG and reassess.
[2020-10-17] MEDS ORDERED: Morphine 4 MG/ML Syringe IVPUSH ONE (22:06)
[2020-10-17 22:13] LABS: BLOOD UREA NITROGEN,BUN 26 mg/dL (7.0-18.0); CARBON DIOXIDE,CO2 24.5 mmol/L (21.0-32.0); CHLORIDE,CL 106 mmol/L (98-107); GLUCOSE RANDOM 111 mg/dL (74-106); POTASSIUM,K 3.6 mmol/L (3.5-5.1); SODIUM,NA 141 mmol/L (136-145)
--- NOTE | 2020-10-17 23:05 | CR ---
INDICATION: right sided chest pain CHEST, ONE VIEW An AP radiograph of the chest was performed. Comparison: No previous studies are currently available for comparison. The lungs appear clear and no pleural effusions are identified. The cardiomediastinal silhouette and pulmonary vasculature appear normal, as do the visualized bones. IMPRESSION: No acute intrathoracic abnormality identified. ANDI BHATTI MD [employer] Dictated by: Raheem Bhatti MD @ 10/17/2020 23:04:57 (Electronically Signed)
[2020-10-18] MEDS ORDERED: Iopamidol 755 MG/ML 500 ML Multipack Bottle IVPUSH STA (00:02)
--- NOTE | 2020-10-18 00:29 | CT ---
INDICATION: right sided chest pain CT CHEST WITH CONTRAST TECHNIQUE: Multidetector CT imaging was performed through the chest following intravenous contrast administration using 50 mL Isovue 370. Coronal and sagittal reconstructions were generated. COMPARISON: None. FINDINGS: Lungs and airways: Shallow inspiration. Nonspecific mosaic attenuation pattern in both lungs, greatest in the lung bases and more pronounced on the left than the right. Central airways are patent. Pleura and pleural spaces: No pleural effusions or pneumothorax. Heart and mediastinum: Mild cardiomegaly. No significant pericardial effusion. No pathologically enlarged mediastinal lymph nodes. Vascular structures: No filling defects in the pulmonary arterial tree to suggest pulmonary emboli. Normal caliber thoracic aorta. Chest wall and axillae: Small focus of subcutaneous stranding in the paramedian anterior upper right chest wall on image 65 of series 401. No axillary lymphadenopathy. Osseous structures: Normal for age. No acute fractures identified. Upper abdomen: Borderline splenomegaly. Small indeterminate hypodense lesion, with minimal adjacent calcification or enhancement, in the lateral spleen on image 150 of series 401, likely benign. IMPRESSION: 1. Nonspecific mosaic attenuation in the lungs, greatest on the left. 2. Small focus of indeterminate subcutaneous fat stranding in the paramedian anterior upper right chest wall. This could represent bruising related to recent trauma, or localized infection/inflammation. 3. Mild cardiomegaly. 4. Borderline splenomegaly. 5. No pulmonary emboli identified. ANDI BHATTI MD [employer] Dictated by Raheem Bhatti MD @ 10/18/2020 12:26:45 AM Dictated by: Raheem Bhatti MD @ 10/18/2020 00:27:46 (Electronically Signed)
[2020-10-18 02:54] VITALS: BP 138/74; PULSE 75
== END 2020-10-18 01:35 | disposition home or self-care (01) ==
LOC: MW.ED 21:33
DX: D72.819 Decreased white blood cell count, unspecified (principal); I10 Essential (primary) hypertension; Z88.0 Allergy status to penicillin; Z79.01 Long term (current) use of anticoagulants; Z79.899 Other long term (current) drug therapy
CPT/HCPCS: 36415; 71046; 71275; 80053; 81001; 81025; 82550; 84484; 85025; 85610; 85730; 87086; 87088; 87186; 93005; 96374; 99285; A9270; J2270; Q9967; 93010; 99284

== ENCOUNTER 2021-07-14 10:56 | Emergency (ER) | payer OTHER ==
[2021-07-14] MEDS ORDERED: Sodium Chloride 0.9% 10 ML Syringe FLUSH PRN (11:59)
[2021-07-14] MEDS ORDERED: Ondansetron 4 MG/2 ML SDV IVPUSH ONE (11:59)
[2021-07-14] MEDS ORDERED: Sodium Chloride 0.9% 1,000 ML IV ONE (11:59)
[2021-07-14] MEDS ORDERED: Sodium Chloride 0.9% 2.5 ML Syringe FLUSH PRN (11:59)
--- NOTE | 2021-07-14 12:04 | EDM.PDOC ---
ED HPI GENERAL MEDICAL PROBLEM - General Chief Complaint: Back Pain or Injury Stated Complaint: KIDNEY PAIN Time Seen by Provider: 07/14/21 10:58 - History of Present Illness INITIAL COMMENTS - FREE TEXT/NARRATIVE: 36-year-old female with a past history of lupus who takes Rituxan infusions as well as 2.5 mg of prednisone daily presenting with nausea vomiting and back pain. Patient's illness started 6 days ago with nonbloody diarrhea. She is developed dysuria bilateral back and flank pain but no fevers. She now also has nausea and vomiting. No chest pain or shortness of breath no anterior abdominal pain. Symptoms constant without exacerbating or alleviating factors patient was seen by PCP 4 days ago UA at that time was reportedly negative. Right Flank Pain Score (Numeric/FACES): 6 - Related Data Allergies Allergy/AdvReac Type Severity Reaction Status Date / Time amoxicillin Allergy Diarrhea Verified 10/17/20 21:47 Home Meds: Home Meds Metoprolol Tartrate 25 mg PO BID 10/17/19 [History] NIFEdipine [Nifedipine ER] 60 mg PO BEDTIME 10/17/19 [History] azaTHIOprine [Azathioprine] 50 mg PO BID 10/17/19 [History] predniSONE [Prednisone] 2.5 mg PO BID 10/17/19 [History] atorvaSTATin [Lipitor] 40 mg PO BEDTIME #30 tab 10/18/19 [Rx] Cholecalciferol (Vitamin D3) [Vitamin D3] 5,000 unit PO DAILY 10/17/20 [History] Warfarin [Coumadin] 5 mg PO ASDIRECTED 10/17/20 [History] Past Medical History HEENT History: Reports: None Cardiovascular History: Reports: Hypertension Respiratory History: Reports: None Gastrointestinal History: Reports: None Other Genitourinary History: pt states microscopic blood clot in the kidneys RATE MARKER History: Reports: None Musculoskeletal History: Reports: SLE Other Musculoskeletal History: lupus Neurological History: Reports: None Psychiatric History: Reports: None Endocrine/Metabolic History: Reports: None Hematologic History: Reports: None Immunologic History: Reports: None Oncologic (Cancer) History: Reports: None Dermatologic History: Reports: None - Infectious Disease History Infectious Disease History: Reports: Chicken Pox, Measles, Mumps - Past Surgical History GI Surgical History: Reports: Other (See Below) Other GI Surgeries/Procedures: kidney biopsy Neurological Surgical History: Reports: Other (See Below) Other Neurological Surgeries/Procedures: Elbow surgery Social & Family History - Family History Family Medical History: No Pertinent Family History - Caffeine Use Caffeine Use: Reports: Coffee ED ROS GENERAL - Review of Systems Review Of Systems: See Below Free Text/Narrative/Comment: General: No fever. Skin: Skin changes related to renounce ENT: No sore throat. Neck: No neck stiffness. Respiratory: No shortness of breath. Cardiac: No chest pain. Gastrointestinal: Per HPI Urinary: Per HPI Musculoskeletal: No myalgias/arthralgias. Neurologic: No headache. ED EXAM, GENERAL - Physical Exam Exam: See Below Free Text/Narrative:: General Appearance: No acute distress, appears comfortable Skin: Right hand changes consistent with right arm patient has a known history of HEENT: Normocephalic/atraumatic, sclera anicteric, mucous membranes dry Neck: Normal range of motion Chest and Lungs: Bilateral breath sounds, clear to auscultation Cardiovascular: Regular rate and rhythm, no murmur Abdomen: Soft, non-tender Musculoskeletal: No edema or tenderness Neurologic: Awake, alert, no obvious deficits, moving all extremities Psychiatric: Appropriate, cooperative Course - Vital Signs Last Recorded V/S: Last Vital Signs Temp 96.9 F 07/14/21 12:03 Pulse 99 07/14/21 16:59 Resp 18 07/14/21 16:59 BP 176/122 H 07/14/21 16:59 Pulse Ox 97 07/14/21 16:59 - Orders/Labs/Meds Orders: Active Orders 24 hr Category Date Time Status Patient Status [ADT] Routine ADT 07/14/21 16:11 Active CORONAVIRUS COVID-19 DINO [MOLEC] Stat Lab 07/14/21 16:15 Received Phytonadione [AquaMephyton] 10 mg Med 07/14/21 16:56 Active Sodium Chloride 0.9% [Normal Saline] 50 ml IV NOW Sodium Chloride 0.9% [Saline Flush] Med 07/14/21 11:59 Active 10 ml FLUSH ASDIRECTED PRN Sodium Chloride 0.9% [Saline Flush] Med 07/14/21 11:59 Active 2.5 ml FLUSH ASDIRECTED PRN Saline Lock Insert [OM.PC] Stat Oth 07/14/21 11:59 Ordered Medication Orders Phytonadione 10 mg/ Sodium (Chloride) 51 mls @ 100 mls/hr IV NOW ONE Stop: 07/14/21 17:26 Sodium Chloride (Sodium Chloride 0.9% 10 Ml Syringe) 10 ml FLUSH ASDIRECTED PRN PRN Reason: Keep Vein Open Last Admin: 07/14/21 12:21 Dose: 10 ml Documented by: XUAN Sodium Chloride (Sodium Chloride 0.9% 2.5 Ml Syringe) 2.5 ml FLUSH ASDIRECTED PRN PRN Reason: Keep Vein Open Last Admin: 07/14/21 12:21 Dose: 2.5 ml Documented by: [email or web address] Labs: Laboratory Tests 07/14/21 07/14/21 07/14/21 Range/Units 11:49 11:49 12:20 WBC 11.60 H (4.0-11.0) K/uL RBC 3.57 L (4.30-5.90) M/uL Hgb 12.6 (12.0-16.0) g/dL Hct 34.7 L (36.0-46.0) % MCV 97.2 (80.0-98.0) fL MCH 35.3 H (27.0-32.0) pg MCHC 36.3 (31.0-37.0) g/dL RDW Std Deviation 56.8 (28.0-62.0) fl RDW Coeff of [place] 16 H (11.0-15.0) % Plt Count 78 L (150-400) K/uL Neut % (Auto) 92.2 H (48.0-80.0) % Lymph % (Auto) 2.2 L (16.0-40.0) % [place] % (Auto) 4.0 (0.0-15.0) % Eos % (Auto) 1.4 (0.0-7.0) % Baso % (Auto) 0.2 (0.0-1.5) % Neut # (Auto) 10.7 H (1.4-5.7) K/uL Lymph # (Auto) 0.3 L (0.6-2.4) K/uL [place] # (Auto) 0.5 (0.0-0.8) K/uL Eos # (Auto) 0.2 (0.0-0.7) K/uL Baso # (Auto) 0.0 (0.0-0.1) K/uL Nucleated RBC % 0.0 /100WBC Nucleated RBCs # 0 K/uL INR Sodium (136-145) mmol/L Potassium (3.5-5.1) mmol/L Chloride (98-107) mmol/L Carbon Dioxide (21.0-32.0) mmol/L BUN (7.0-18.0) mg/dL Creatinine (0.6-1.0) mg/dL Est Cr Clr Drug Dosing mL/min Estimated GFR (MDRD) ml/min Glucose (74-106) mg/dL Calcium (8.5-10.1) mg/dL Total Bilirubin (0.2-1.0) mg/dL AST (15-37) IU/L ALT (14-63) IU/L Alkaline Phosphatase (46-116) U/L Total Protein (6.4-8.2) g/dL Albumin (3.4-5.0) g/dL Globulin (2.6-4.0) g/dL Albumin/Globulin Ratio (0.9-1.6) Urine Color YELLOW Urine Appearance CLEAR Urine pH 6.0 (5.0-8.0) Ur Specific [place] >= 1.030 (1.001-1.035) Urine Protein >=300 H (NEGATIVE) mg/dL Urine Glucose (UA) NEGATIVE (NEGATIVE) mg/dL Urine Ketones 15 H (NEGATIVE) mg/dL Urine Occult Blood LARGE H (NEGATIVE) Urine Nitrite NEGATIVE (NEGATIVE) Urine Bilirubin MODERATE H (NEGATIVE) Urine Urobilinogen 0.2 (<2.0) EU/dL Ur Leukocyte Esterase NEGATIVE (NEGATIVE) Urine RBC TOO NUMEROUS TO CT H (0-2/HPF) Urine WBC 0-2 (0-5/HPF) Ur Epithelial Cells FEW (NONE-FEW) Urine Bacteria FEW (NEGATIVE) Urine HCG, Qual NEGATIVE (NEGATIVE) 07/14/21 07/14/21 Range/Units 12:20 12:20 WBC (4.0-11.0) K/uL RBC (4.30-5.90) M/uL Hgb (12.0-16.0) g/dL Hct (36.0-46.0) % MCV (80.0-98.0) fL MCH (27.0-32.0) pg MCHC (31.0-37.0) g/dL RDW Std Deviation (28.0-62.0) fl RDW Coeff of [place] (11.0-15.0) % Plt Count (150-400) K/uL Neut % (Auto) (48.0-80.0) % Lymph % (Auto) (16.0-40.0) % [place] % (Auto) (0.0-15.0) % Eos % (Auto) (0.0-7.0) % Baso % (Auto) (0.0-1.5) % Neut # (Auto) (1.4-5.7) K/uL Lymph # (Auto) (0.6-2.4) K/uL [place] # (Auto) (0.0-0.8) K/uL Eos # (Auto) (0.0-0.7) K/uL Baso # (Auto) (0.0-0.1) K/uL Nucleated RBC % /100WBC Nucleated RBCs # K/uL INR 13.70 H* Sodium 135 L (136-145) mmol/L Potassium 4.0 (3.5-5.1) mmol/L Chloride 99 (98-107) mmol/L Carbon Dioxide 23.5 (21.0-32.0) mmol/L BUN 25 H (7.0-18.0) mg/dL Creatinine 2.0 H (0.6-1.0) mg/dL Est Cr Clr Drug Dosing 27.39 mL/min Estimated GFR (MDRD) 27.9 ml/min Glucose 132 H (74-106) mg/dL Calcium 7.5 L (8.5-10.1) mg/dL Total Bilirubin 2.1 H (0.2-1.0) mg/dL AST 105 H (15-37) IU/L ALT 71 H (14-63) IU/L Alkaline Phosphatase 133 H (46-116) U/L Total Protein 7.6 (6.4-8.2) g/dL Albumin 3.2 L (3.4-5.0) g/dL Globulin 4.4 H (2.6-4.0) g/dL Albumin/Globulin Ratio 0.7 L (0.9-1.6) Urine Color Urine Appearance Urine pH (5.0-8.0) Ur Specific [place] (1.001-1.035) Urine Protein (NEGATIVE) mg/dL Urine Glucose (UA) (NEGATIVE) mg/dL Urine Ketones (NEGATIVE) mg/dL Urine Occult Blood (NEGATIVE) Urine Nitrite (NEGATIVE) Urine Bilirubin (NEGATIVE) Urine Urobilinogen (<2.0) EU/dL Ur Leukocyte Esterase (NEGATIVE) Urine RBC (0-2/HPF) Urine WBC (0-5/HPF) Ur Epithelial Cells (NONE-FEW) Urine Bacteria (NEGATIVE) Urine HCG, Qual (NEGATIVE) Meds: Medications Generic Name Dose Route Start Last Admin Trade Name Freq PRN Reason Stop Dose Admin Phytonadione 10 mg/ Sodium 51 mls @ 100 mls/hr 07/14/21 16:56 Chloride IV 07/14/21 17:26 NOW ONE Sodium Chloride 10 ml 07/14/21 11:59 07/14/21 12:21 Sodium Chloride 0.9% 10 Ml Syringe FLUSH 10 ml ASDIRECTED PRN Administration Keep Vein Open Sodium Chloride 2.5 ml 07/14/21 11:59 07/14/21 12:21 Sodium Chloride 0.9% 2.5 Ml Syringe FLUSH 2.5 ml ASDIRECTED PRN Administration Keep Vein Open Discontinued Medications Generic Name Dose Route Start Last Admin Trade Name Freq PRN Reason Stop Dose Admin Hydralazine HCl 10 mg 07/14/21 16:49 07/14/21 17:03 Hydralazine 20 Mg/Ml Sdv IVPUSH 07/14/21 16:50 10 mg ONETIME ONE Administration Hydralazine HCl 10 mg 07/14/21 16:46 07/14/21 17:08 Hydralazine 20 Mg/Ml Sdv IVPUSH 07/14/21 16:47 Not Given ONETIME ONE Sodium Chloride 1,000 mls @ 999 mls/hr 07/14/21 11:59 07/14/21 12:20 Normal Saline IV 07/14/21 12:59 999 mls/hr .Bolus ONE Administration Levofloxacin/Dextrose 750 mg/ 150 mls @ 100 mls/hr 07/14/21 15:53 07/14/21 16:16 Premix IV 07/14/21 17:22 Not Given ONETIME ONE Ceftriaxone Sodium/Dextrose 1 50 mls @ 100 mls/hr 07/14/21 15:57 07/14/21 16:15 gm/ Premix IV 07/14/21 16:26 100 mls/hr ONETIME ONE Administration Morphine Sulfate 4 mg 07/14/21 12:32 07/14/21 13:28 Morphine 4 Mg/Ml Syringe IVPUSH 07/14/21 12:33 4 mg ONETIME ONE Administration Morphine Sulfate Confirm 07/14/21 13:10 07/14/21 13:34 Morphine 4 Mg/Ml Vial Administered 07/14/21 13:11 Not Given Dose 4 mg .ROUTE .STK-MED ONE Morphine Sulfate 4 mg 07/14/21 15:51 07/14/21 16:05 Morphine 4 Mg/Ml Syringe IVPUSH 07/14/21 15:52 4 mg ONETIME ONE Administration Morphine Sulfate Confirm 07/14/21 16:00 07/14/21 16:15 Morphine 4 Mg/Ml Vial Administered 07/14/21 16:01 Not Given Dose 4 mg .ROUTE .STK-MED ONE Ondansetron HCl 4 mg 07/14/21 11:59 07/14/21 12:25 Ondansetron 4 Mg/2 Ml Sdv IVPUSH 07/14/21 12:00 4 mg ONETIME ONE Administration Departure - Departure Time of Disposition: 16:13 Disposition: Admitted As Inpatient 64 Condition: Good Clinical Impression: Acute cholecystitis, Supratherapeutic INR, Hypertensive urgency - Discharge Information *PRESCRIPTION DRUG MONITORING PROGRAM REVIEWED*: Not Applicable *COPY OF PRESCRIPTION DRUG MONITORING REPORT IN PATIENT [place]: Not Applicable Referrals: Monet Baca DO [Primary Care Provider] - Forms: ED Department Discharge Sepsis Event Note (ED) - Focused Exam Vital Signs: Vital Signs Temp Pulse Resp BP Pulse Ox 07/14/21 16:59 99 18 176/122 H 97 07/14/21 16:08 83 18 201/127 H 97 07/14/21 13:37 83 18 193/109 H 95 07/14/21 12:03 96.9 F 84 18 200/118 H 98 - My Orders Last 24 Hours: My Active Orders 07/14/21 11:59 Sodium Chloride 0.9% [Saline Flush] 10 ml FLUSH ASDIRECTED PRN Sodium Chloride 0.9% [Saline Flush] 2.5 ml FLUSH ASDIRECTED PRN Saline Lock Insert [OM.PC] Stat 07/14/21 16:11 Patient Status [ADT] Routine 07/14/21 16:15 CORONAVIRUS COVID-19 DINO [MOLEC] Stat 07/14/21 16:56 Phytonadione [AquaMephyton] 10 mg Sodium Chloride 0.9% [Normal Saline] 50 ml IV NOW - Assessment/Plan Last 24 Hours: My Active Orders 07/14/21 11:59 Sodium Chloride 0.9% [Saline Flush] 10 ml FLUSH ASDIRECTED PRN Sodium Chloride 0.9% [Saline Flush] 2.5 ml FLUSH ASDIRECTED PRN Saline Lock Insert [OM.PC] Stat 07/14/21 16:11 Patient Status [ADT] Routine 07/14/21 16:15 CORONAVIRUS COVID-19 DINO [MOLEC] Stat 07/14/21 16:56 Phytonadione [AquaMephyton] 10 mg Sodium Chloride 0.9% [Normal Saline] 50 ml IV NOW Assessment:: 36-year-old female with history of lupus on chronic prednisone presenting with signs and symptoms that are most concerning for pyelonephritis. No cough no fever no myalgias nothing that would suggest Covid. No anterior abdominal symptoms that would suggest diverticulitis appendicitis or acute biliary pathology. Patient clearly dehydrated. Patient severely hypertensive on initial evaluation. She does have a known history of hypertension. Will reassess this number 20 minutes. No symptoms that would suggest malignant hypertension at this time. Zofran and IV fluids given for symptoms and will reassess. 1230: Urinalysis with no signs of infection but significant hematuria. Patient reports that her pain is more on the right side renal colic is possible though she does not have the characteristic waxing and waning pain. That said noncontrast CT will be ordered morphine for pain has been ordered. 1545: Blood work with very minimal leukocytosis very minimal transaminitis. CT concerning for acute cholecystitis. Ultrasound ordered shows sludge in the gallbladder gallbladder wall thickening and pericholecystic fluid likewise concerning for acute cholecystitis will discuss with general surgery. 1555: Pt discussed with Dr. Berumen. If we have capacity in the hospital for a cholecystectomy then he will come see the patient. When I updated the patient she stated that she is on Coumadin due to a h/o stroke in 2019. INR added, additional morphine ordered for pain. Pt has an allergy to amoxicillin. She is states that is just diarrhea given that we will proceed with ceftriaxone. 1600: We have been able to confirm with housing supervisor safety deposit that we do have capacity for cholecystectomy admit at this time. Covrandell swab is been added as well. Patient discussed again with Dr. Berumen. Given her medical complexity request admission to the medicine service. Will discuss with hospitalist. 1615: Pt discussed with Dr. Adam Berumen who will admit the patient. 1630: On additional chart review Dr. Adam Berumen feels the patient is not appropriate for surgery at our facility due to her chronic medical conditions, particularly her thrombocytopenia. [facility] does not have capacity at this time. 1645: [facility] in [place] and spoke to Dr. Mendoza the hospitalist. He is willing to accept the patient. However, the patient will require a PCU bed. They will check and see if they have capacity. 1715: They do have capacity for the patient at [facility] in [place]. Given the patient's hypertensive urgency her extremely elevated INR I do not think a 4- hour drive is appropriate for her and will follow the patient. Patient is felt stable for transfer by flight.
[2021-07-14] MEDS ORDERED: Morphine 4 MG/ML Syringe IVPUSH ONE ×2 (12:32→15:51)
[2021-07-14 12:59] LABS: CARBON DIOXIDE,CO2 23.5 mmol/L (21.0-32.0)
[2021-07-14] MEDS ORDERED: Morphine 4 MG/ML VIAL ONE ×2 (13:10→16:00)
--- NOTE | 2021-07-14 13:34 | CT ---
INDICATION: Flank pain. TECHNIQUE: CT abdomen and pelvis without contrast. COMPARISON: None FINDINGS: Lower chest: Unremarkable. Liver: Unremarkable. Spleen: Upper normal size at roughly 12 cm. Pancreas: Unremarkable. Gallbladder and bile ducts: Slightly enlarged gallbladder with pericholecystic edema. No biliary ductal dilatation appreciated. No radiopaque filling defect in nondilated common bile duct. Kidneys: Relatively atrophied appearance of left kidney with prominent pelvic fat. Peripelvic and parenchymal cysts of the left kidney. Nonobstructing punctate 2-3 millimeter calculi of mid and lower pole calices. No hydronephrosis. Prominent pelvic fat on the right and lower normal thickness of parenchyma.. Adrenal glands: Unremarkable. GI tract: Unremarkable. Appendix is normal. Vascular structures: Unremarkable. Lymph nodes: Unremarkable. Miscellaneous: Unremarkable. No free air or significant free fluid. Small fat filled umbilical hernia. Pelvic Organs: Multiple cysts of both adnexa. Largest on the left is 6.1 cm. Bones: Unremarkable for age. IMPRESSION: Appearance favoring acute cholecystitis. Correlate with physical exam. Ultrasound may help better characterize. Multiple cysts in the pelvis appear adnexal/ovarian in origin. The largest in the left pelvis 6.1 cm. Although cysts are likely benign, consider ultrasound for better characterization. Relative atrophy left kidney. Nonobstructing small caliceal calculi. Parenchymal and peripelvic cysts. Prominent fat of the right renal pelvis and borderline atrophy of the parenchyma. Please note that all CT scans at this facility use dose modulation, iterative reconstruction, and/or weight-based dosing when appropriate to reduce radiation dose to as low as reasonably achievable. Dictated by Vishal Clarke MD @ 07/14/2021 1:31:54 PM (Electronically Signed)
--- NOTE | 2021-07-14 15:31 | US ---
INDICATION: Concern for cholecystitis. Abdominal pain. Abnormal CT. TECHNIQUE: Transabdominal imaging with attention to the right upper quadrant. COMPARISON: CT from earlier today. FINDINGS: The visualized portions of the pancreas are unremarkable. There is sludge seen within the mildly distended gallbladder. No gallstone are identified. There is diffuse gallbladder wall thickening with mild pericholecystic edema. No extrahepatic bile duct dilatation. The CBD measures 4 mm. Liver is normal size and echogenicity with no appreciable intrahepatic mass. No intrahepatic bile duct dilatation. Right kidney is limited in its evaluation due to bowel gas. There appears to be increased echogenicity of the renal parenchyma, which can be seen with chronic medical renal disease. No hydronephrosis. IMPRESSION: 1. Sludge is seen within the mildly distended gallbladder. There is also gallbladder wall thickening with mild pericholecystic edema. Sonographic findings are concerning for acute cholecystitis. 2. Other findings as noted. Dictated by Jono Sifuentes MD @ 07/14/2021 3:28:35 PM Dictated by: Jono Sifuentes MD @ 07/14/2021 15:29:29 (Electronically Signed)
[2021-07-14] MEDS ORDERED: Levofloxacin/Dextrose 5%-Water 750 MG in Premix Bag 1 BAG IV ONE (15:53)
[2021-07-14] MEDS ORDERED: cefTRIAXone 1 GM in Premix Bag 1 BAG IV ONE (15:57)
[2021-07-14] MEDS ORDERED: hydrALAZINE 20 MG/ML SDV IVPUSH ONE ×2 (16:46→16:49)
[2021-07-14] MEDS ORDERED: Phytonadione 10 MG in Sodium Chloride 0.9% 50 ML IV ONE (16:56)
[2021-07-14 19:26] VITALS: BP 151/95; PULSE 96
== END 2021-07-14 18:08 | disposition critical access hospital (66) ==
LOC: MW.ED 10:56 → MW.MS 16:38 → UNDOADMIN 16:38 → MW.ED 18:08
DX: K81.0 Acute cholecystitis (principal); I16.0 Hypertensive urgency; R79.1 Abnormal coagulation profile; Z88.0 Allergy status to penicillin; Z79.899 Other long term (current) drug therapy; Z20.822 Contact with and (suspected) exposure to COVID-19
CPT/HCPCS: 36415; 74176; 76705; 80053; 81001; 81025; 85025; 85610; 87635; 96365; 96375; 96376; 99285; J0360; J0696; J2270; J2405; J3430; J7030; U0002

== ENCOUNTER 2021-08-06 09:54 | Emergency (ER) | payer OTHER ==
--- NOTE | 2021-08-06 13:02 | US ---
CLINICAL HISTORY: Right upper extremity pain status post PICC removal. TECHNIQUE: Grayscale, color Doppler and compression sonography of the deep venous system of the right upper extremity was performed. COMPARISON: None FINDINGS: The right internal jugular, axillary and paired brachial veins are patent with color flow, compressibility, and respiratory variation. The right subclavian vein is patent with color flow and respiratory variation. There is no intraluminal echogenic material within these veins to suggest thrombus. The right basilic and cephalic veins are patent and compressible. IMPRESSION: 1. No sonographic evidence of deep or superficial venous thrombosis in the right upper extremity. Dictated by Matt Pastor MD @ 08/06/2021 1:00:43 PM (Electronically Signed)
--- NOTE | 2021-08-06 13:23 | US ---
DUPLEX ARTERIAL ULTRASOUND RIGHT UPPER EXTREMITY, 08/06/2021 CLINICAL HISTORY: Right upper extremity pain status post PICC removal. COMPARISON: None available. TECHNIQUE: The upper extremity arteries were examined per exam specific protocol with phillips-scale ultrasound, color-flow and Doppler spectral analysis. Peak systolic velocities (PSV), Doppler waveform quality and velocity ratios, if applicable, were documented at sites per exam specific protocol. FINDINGS: RIGHT RT Subclavian: 93 cm/sec; Triphasic RT Axillary: 45 cm/sec; Triphasic RT Brachial: 65 cm/sec; Triphasic RT Radial: 36 cm/sec; Biphasic RT Ulnar: 27 cm/sec; Biphasic Multiphasic waveforms are seen throughout the right upper extremity arterial system. There is no evidence for hemodynamically significant stenoses or occlusions. IMPRESSION: Multiphasic waveforms throughout the right upper extremity arterial system. No evidence for hemodynamically significant stenoses or occlusions. Matt Pastor M.D. Vascular and Interventional Radiology Transcribed: 1:10 p.m. [email or web address] PT/Dictated by: Matt Pastor MD @ 08/06/2021 1:01:00 PM (Electronically Signed)
--- NOTE | 2021-08-06 14:06 | CR ---
Indication: Shoulder pain. Recent PICC line placement. Technique: Right shoulder 1 views. Comparison: None. Findings: Bones: Alignment is normal. No fractures or bone lesions. Joint spaces: The glenohumeral and AC joints and the subacromial space are preserved. No significant degenerative changes. Soft tissues: Unremarkable. Impression: Unremarkable shoulder. No findings to explain pain. Dictated by Ryan Keating MD @ 08/06/2021 2:05:39 PM (Electronically Signed)
--- NOTE | 2021-08-06 14:40 | EDM.PDOC ---
ED HPI GENERAL MEDICAL PROBLEM - General Chief Complaint: Upper Extremity Injury/Pain Stated Complaint: SHOULDER PAIN Time Seen by Provider: 08/06/21 10:04 Source of Information: Reports: Patient History Limitations: Reports: No Limitations - History of Present Illness INITIAL COMMENTS - FREE TEXT/NARRATIVE: HISTORY AND PHYSICAL: History of present illness: Patient is a 36-year-old female with a complicated medical history including antiphospholipid antibody disorder, lupus, prior stroke affecting her right hand fingers, hypertension, on current anticoagulation of warfarin and Lovenox bridge who presents emergency room today with concern of right shoulder pain/muscle stiffness preventing full range of motion of the right shoulder. Patient was recently transferred to [place] for acute cholecystitis and a supratherapeutic INR. Patient states that she was placed on antibiotics and had a PIC line placed but ultimately was transferred to [facility] as they felt her lupus was too complex and required a higher level of care. Patient states that she was at [facility] until 07/23 and states that at that time she had the PICC line removed and has had some bruising of the area of the PICC line. Patient states starting 5 days ago, she began having tensing muscles around her right shoulder and states that it felt like a muscle pain and she assumed it was from the PICC line. Becky diallolaly states then she realized that she was holding her shoulder still all weekend and that she could not lift her shoulder any longer due to the tension of the muscles around the shoulder. Patient states that she went to her primary care provider who gave her muscle relaxers and she states that this has not relax the muscles enough for her to move her shoulder. She denies any direct trauma or injury. Patient does state that she has some sensation changes to her forearm but states that she does have sensation. Patient states that at baseline, she has a fusion of her right elbow and has limited range of motion of her right elbow and denies any change in her baseline of her right elbow wrist or hand. Patient states that her only change is the severity of tension surrounding her right shoulder which is painful and causes limitation of range of motion of her right shoulder. Patient states that she has followed with neurology in the past with her past stroke and states that this was related to the antiphospholipid antibody disorder. Patient states that she has been on her blood thinning medication ever since her hospital stay and states that she has not had at any point in time stopping her blood thinning medication. Patient denies fever, chills, chest pain, shortness of breath, or cough. Denies headache, neck stiff ness, change in vision, syncope, or near syncope. Denies nausea, vomiting, abdominal pain, diarrhea, constipation, or dysuria. Has not noted any blood in urine or stool. Patient has been eating and drinking appropriately. Review of systems: As per history of present illness and below otherwise all systems reviewed and negative. Past medical history: As per history of present illness and as reviewed below otherwise noncontributory. Surgical history: As per history of present illness and as reviewed below otherwise noncontributory. Social history: See social history for further information Family history: As per history of present illness and as reviewed below otherwise noncontributory. Physical exam: General: Patient is alert, oriented, and in no acute distress. Patient sitting comfortably on exam table. Vitals stable and reviewed by me. Patient is tachycardic 115's on exam. HEENT: Atraumatic, normocephalic, pupils equal and reactive bilaterally, negative for conjunctival pallor or scleral icterus, mucous membranes moist, throat clear, neck supple, nontender, trachea midline. No drooling or trismus noted. No meningeal signs. No hot potato voice noted. Lungs: Clear to auscultation, breath sounds equal bilaterally, chest nontender. Heart: S1S2, regular rate and rhythm without overt murmur Abdomen: Soft, nondistended, nontender. Negative for masses or hepatosplenomegaly. Negative for costovertebral tenderness. Pelvis: Stable nontender. Genitourinary: Deferred. Rectal: Deferred. Skin: Intact, warm, dry. No lesions or rashes noted. Extremities: No obvious deformity of the complete right or left upper extremity. Intact sensation to light and deep touch of the complete right and left upper extremity. Patient has limited range of motion of the right elbow (according to patient is per her baseline), and has very limited range of motion of her right shoulder with active range of motion but does have full range of motion with passive. Patient does have full range of motion of the right wrist and extremities. Radial pulses grossly intact of the right upper extremity with capillary refill less than 2 seconds. No obvious edema, erythema, or ecchymosis of the right upper extremity. Patient does have livedo reticularis rash over bilateral upper extremities and chest. According to her this is baseline. The trapezius muscle of the right shoulder is severely tense and painful to palpation as well as the surrounding deltoid muscle of the shoulder on the right. All compartments are soft of the right upper extremity. Patient does have ecchymosis underlying the area of PICC line insertion on her chest wall of the right without crepitus, or tenderness to palpation. Patient has full range of motion of bilateral lower extremities without pain or difficulty. Otherwise, atraumatic, negative for cords or calf pain. Neurovascular unremarkable. Neuro: NIH score 0. Awake, alert, oriented. Cranial nerves II through XII unremarkable. Cerebellum unremarkable. Motor and sensory unremarkable throughout. Exam nonfocal. Medical Decision Making: Dr. Zavaleta verbally involved in patient care. Patient is a 36-year-old female, with a complicated medical history including antiphospholipid antibody disorder, lupus, prior stroke affecting her right side with right elbow effusion, currently on anticoagulation, who presents emergency room today with concern of inability to perform range of motion of her right shoulder and muscle spasm of the right shoulder following a recent PICC line removal 1 week prior. Upon arrival to the ED, patient is vitally stable and is tachycardic 115's on exam. (According to patient, she was discharged from [facility] with the same heart rate). Patient does have significant limitation of range of motion of her right shoulder with surrounding spasm of the deltoid and trapezius of the affected shoulder. Patient does have some ecchymosis around the PICC line insertion on the right anterior chest but no edema, erythema noted. Other physical exam findings noted above are at baseline according to patient. At this time, I recommended basic lab work for patient, however, she declines at this time. Patient states that she just had her INR checked before coming to the emergency room and was 2.7 and states that her goal INR is 2.5-3.5 and does not want to have any additional lab work at this time. All risks versus benefits discussed with patient and expresses understanding. Given recent PICC line insertion, will obtain venous Doppler of the right upper extremity as well as arterial. Will also get a x-ray of the shoulder. Shoulder x-ray is unremarkable. Arterial ultrasound shows multiphasic waveforms throughout right upper extremity arterial system. No evidence for stenosis or occlusions. Venous ultrasound shows no sonographic evidence for deep or superficial venous t hrombosis in the right upper extremity. Upon reevaluation of patient, she remains tachycardic 115's on exam. I reoffered basic lab work to assess her tachycardia and her stated complaint, however, she continues to decline. Patient's who is at bedside mentions note of some legging of her right eye that he has witnessed twice since the onset of her symptoms 5 days ago. On exam, I do not appreciate this deficit, however, given patient's stroke history, I did offer a further stroke evaluation. However, patient declines at this time. All risks versus benefits discussed with patient and expresses understanding. Strict return precautions thoroughly discussed with patient. Discussed importance for follow-up with her electrical lineworker, neurologist, and her primary care provider. Will also refer patient to the orthopedic clinic given the concerns of her shoulder. Voices understanding and is agreeable to plan of care. Denies any further questions or concerns at this time. Diagnostics: Arterial and venous Doppler ultrasound right upper extremity, 1 view shoulder x- ray Therapeutics: none Prescription: None Impression: Right shoulder pain Plan: 1. Rest, ice, elevate the affected extremity. You can apply ice 15 minutes on, 15 minutes off. 2. Tylenol as directed for pain management or discomfort. 3. Follow up with the Orthopedic provider, your electrical lineworker and your neur ologist as discussed. Return to the ED as needed and as discussed. Definitive disposition and diagnosis as appropriate pending reevaluation and review of above. Right Arm Pain Score (Numeric/FACES): 2 - Related Data Allergies Allergy/AdvReac Type Severity Reaction Status Date / Time amoxicillin Allergy Diarrhea Verified 08/06/21 10:52 Home Meds: Home Meds Metoprolol Tartrate 25 mg PO BID 10/17/19 [History] NIFEdipine [Nifedipine ER] 60 mg PO BEDTIME 10/17/19 [History] predniSONE [Prednisone] 2.5 mg PO BID 10/17/19 [History] atorvaSTATin [Lipitor] 40 mg PO BEDTIME #30 tab 10/18/19 [Rx] Cholecalciferol (Vitamin D3) [Vitamin D3] 5,000 unit PO DAILY 10/17/20 [History] Warfarin [Coumadin] 5 mg PO ASDIRECTED 10/17/20 [History] mycophenolate mofetiL [Cellcept] 1,000 mg PO BID 08/06/21 [History] Past Medical History HEENT History: Reports: None Cardiovascular History: Reports: Heart Murmur, Hypertension, Other (See Below) Other Cardiovascular History: antiphospholipid disorder Respiratory History: Reports: None Gastrointestinal History: Reports: None Other Genitourinary History: pt states microscopic blood clot in the kidneys 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 Musculoskeletal History: Reports: SLE Other Musculoskeletal History: lupus Neurological History: Reports: CVA Psychiatric History: Reports: None Endocrine/Metabolic History: Reports: None Hematologic History: Reports: Other (See Below) Other Hematologic History: lovenox and warfarin for blood clotting disorder Immunologic History: Reports: None Oncologic (Cancer) History: Reports: None Dermatologic History: Reports: None - Infectious Disease History Infectious Disease History: Reports: Chicken Pox - Past Surgical History Head Surgeries/Procedures: Reports: None Cardiovascular Surgical History: Reports: None GI Surgical History: Reports: Other (See Below) Other GI Surgeries/Procedures: kidney biopsy Neurological Surgical History: Reports: Other (See Below) Other Neurological Surgeries/Procedures: Elbow surgery Musculoskeletal Surgical History: Reports: Other (See Below) Other Musculoskeletal Surgeries/Procedures:: right elbow fusion, osteopenia Social & Family History - Family History Family Medical History: No Pertinent Family History - Tobacco Use Tobacco Use Status *Q: Never Tobacco User - Caffeine Use Caffeine Use: Reports: None - Recreational Drug Use Recreational Drug Use: No Review of Systems - Review of Systems Review Of Systems: Comprehensive ROS is negative, except as noted in HPI. ED EXAM, GENERAL - Physical Exam Exam: See Below (See dictation) Course - Vital Signs Last Recorded V/S: Last Vital Signs Temp 98.3 F 08/06/21 14:59 Pulse 112 H 08/06/21 14:59 Resp 18 08/06/21 14:59 BP 154/105 H 08/06/21 14:59 Pulse Ox 98 08/06/21 14:59 Departure - Departure Time of Disposition: 14:39 Disposition: Home, Self-Care 01 Clinical Impression: Shoulder pain - Discharge Information Instructions: Shoulder Pain Referrals: PCP,None [Primary Care Provider] - Forms: ED Department Discharge Additional Instructions: The following information is given to patients seen in the emergency department who are being discharged to home. This information is to outline your options for follow-up care. We provide all patients seen in our emergency department with a follow-up referral. The need for follow-up, as well as the timing and circumstances, are variable depending upon the specifics of your emergency department visit. If you don't have a primary care physician on staff, we will provide you with a referral. We always advise you to contact your personal physician following an emergency department visit to inform them of the circumstance of the visit and for follow-up with them and/or the need for any referrals to a consulting specialist. The emergency department will also refer you to a specialist when appropriate. This referral assures that you have the opportunity for follow-up care with a specialist. All of these measure are taken in an effort to provide you with optimal care, which includes your follow-up. Under all circumstances we always encourage you to contact your private physician who remains a resource for coordinating your care. When calling for follow-up care, please make the office aware that this follow-up is from your recent emergency room visit. If for any reason you are refused follow-up, please contact the [facility] Emergency Department at and asked to speak to the emergency department charge nurse. [facility] [address] [place] [address] [id number] [address] [facility] Specialty Care - Orthopedic Clinic Professional [address] [address] [facility] - Neurology Professional [address], [address] [address] 1. Rest, ice, elevate the affected extremity. You can apply ice 15 minutes on, 15 minutes off. 2. Tylenol as directed for pain management or discomfort. 3. Follow up with the Orthopedic provider, your electrical lineworker and your neurologist as discussed. Return to the ED as needed and as discussed. Sepsis Event Note (ED) - Evaluation Sepsis Screening Result: No Definite Risk - Focused Exam Vital Signs: Vital Signs Temp Pulse Resp BP Pulse Ox 08/06/21 14:59 98.3 F 112 H 18 154/105 H 98 08/06/21 10:30 98 F 111 H 16 148/103 H 98
[2021-08-06 16:05] VITALS: BP 154/105; PULSE 112
== END 2021-08-06 15:05 | disposition home or self-care (01) ==
LOC: MW.ED 09:54
DX: M25.511 Pain in right shoulder (principal); I10 Essential (primary) hypertension; Z88.0 Allergy status to penicillin; Z79.899 Other long term (current) drug therapy
CPT/HCPCS: 73020-26-RT; 73020-RT; 93931; 93931-26; 93971-26-RT; 93971-RT; 99284-25

== ENCOUNTER 2022-05-07 09:30 | Emergency (ER) | payer BC ==
[2022-05-07 10:14] LABS: CARBON DIOXIDE,CO2 22.5 mmol/L (21.0-32.0); POTASSIUM,K 3.3 mmol/L (3.5-5.1)
[2022-05-07 17:27] VITALS: BP 118/68; PULSE 61
== END 2022-05-07 17:27 | disposition home or self-care (01) ==
LOC: MW.ED 09:30
DX: D64.9 Anemia, unspecified (principal); D69.6 Thrombocytopenia, unspecified; M32.9 Systemic lupus erythematosus, unspecified; I10 Essential (primary) hypertension; Z88.1 Allergy status to other antibiotic agents; Z79.899 Other long term (current) drug therapy; Z79.01 Long term (current) use of anticoagulants
CPT/HCPCS: 36415; 36430; 80053; 85025; 85610; 85730; 86850; 86900; 86901; 86920; 99284; P9016